=== PATIENT | male | born 1965 | race Hispanic/Latino ===

== ENCOUNTER 2016-08-09 00:08 | Inpatient (IN) | payer MEDICARE, MEDICAID, OTHER ==
[2016-08-09 00:52] VITALS: BMI 31.6
--- NOTE | 2016-08-09 00:59 | ED PDOC ---
Arrival/HPI - General Chief Complaint: Psychiatric Evaluation Time Seen by Provider: 08/09/16 00:50 Historian: Patient - History of Present Illness Narrative History of Present Illness (Text): 08/09/16 00:59 Alvarez Pillai is a 51 year old male, whose past medical history includes paranoid schizophrenia, diabetes, and liver injury, who presents to the ED complaining of auditory hallucinations tonight. Patient states he has been hearing voices and notes he has been feeling very paranoid. Patient denies any suicidal ideation, homicidal ideation, fever, chills, chest pain, shortness of breath, abdominal pain, nausea, vomiting, diarrhea, urinary symptoms, back pain, neck pain, headache, dizziness, or any other complaints. Time/Duration: Other (tonight) Symptom Onset: Gradual Symptom Course: Other Activities at Onset: Rest, Light Context: Home Past Medical History - Provider Review Nursing Documentation Reviewed: Yes - Infectious Disease Hx of Infectious Diseases: None - Cardiac Hx Cardiac Disorders: No Hx Hypertension: Yes - Pulmonary Hx Respiratory Disorders: No Hx Tuberculosis: No - Neurological HX Cerebrovascular Accident: No Hx Seizures: No - HEENT Hx HEENT Disorder: No - Renal Hx Renal Disorder: No - Endocrine/Metabolic Hx Endocrine Disorders: Yes Hx Diabetes Mellitus Type 2: Yes - Hematological/Oncological Hx Blood Disorders: No Hx Cancer: No - Integumentary Hx Dermatological Disorder: No - Musculoskeletal/Rheumatological Hx Musculoskeletal Disorders: No - Gastrointestinal Hx Gastrointestinal Disorders: Yes Hx Gastroesophageal Reflux: Yes - Genitourinary/Gynecological Hx Genitourinary Disorders: No Hx Sexually Transmitted Diseases: No - Psychiatric Hx Anxiety: Yes Hx Depression: Yes Hx Emotional Abuse: No Hx Physical Abuse: No Hx Schizophrenia: Yes Hx Sexual Abuse: No Hx Substance Use: No - Surgical History Other/Comment: liver surgery - Anesthesia Hx Anesthesia: Yes Hx Anesthesia Reactions: No Hx Malignant Hyperthermia: No Family/Social History - Physician Review Nursing Documentation Reviewed: Yes Family/Social History: No Known Family HX Smoking Status: Heavy Smoker > 10 Cigarettes Daily Hx Alcohol Use: No Hx Substance Use: No Allergies/Home Meds Allergies/Adverse Reactions: Allergies haloperidol [From Haldol] Allergy (Intermediate, Verified 08/09/16 00:56) SWELLING spasm haloperidol lactate [From Haldol] Allergy (Intermediate, Verified 08/09/16 00:56 ) SWELLING spasm risperidone [From Risperdal] Allergy (Verified 08/09/16 00:56) SWELLING Home Medications: Home Meds Medication Instructions Recorded Confirmed clonazePAM [clonAZEPAM] 1 mg PO BID 08/09/16 08/09/16 Review of Systems - Physician Review All systems were reviewed & negative as marked: Yes - Review of Systems Constitutional: Normal. absent: Fevers Eyes: Normal ENT: Normal Respiratory: Normal. absent: SOB, Cough Cardiovascular: Normal. absent: Chest Pain Gastrointestinal: Normal. absent: Abdominal Pain, Diarrhea, Nausea, Vomiting Genitourinary Male: Normal. absent: Dysuria, Frequency, Hematuria, Urinary Output Changes Musculoskeletal: Normal. absent: Back Pain, Neck Pain Skin: Normal. absent: Rash Neurological: Normal. absent: Headache, Dizziness Endocrine: Normal Hemo/Lymphatic: Normal Psychiatric: Other (+auditory hallucinations) Physical Exam Vital Signs Reviewed: Yes Vital Signs Temp Pulse Resp BP Pulse Ox 08/09/16 05:50 70 18 114/73 95 08/09/16 03:30 68 18 125/78 99 08/09/16 00:51 98.0 F 90 18 137/81 97 Temperature: Afebrile Blood Pressure: Normal Pulse: Regular Respiratory Rate: Normal Appearance: Positive for: Well-Appearing, Non-Toxic, Comfortable Pain Distress: None Mental Status: Positive for: Alert and Oriented X 3 - Systems Exam Head: Present: Atraumatic, Normocephalic Pupils: Present: PERRL Extroacular Muscles: Present: EOMI Conjunctiva: Present: Normal Mouth: Present: Moist Mucous Membranes Neck: Present: Normal Range of Motion Respiratory/Chest: Present: Clear to Auscultation, Good Air Exchange. No: Respiratory Distress, Accessory Muscle Use Cardiovascular: Present: Regular Rate and Rhythm, Normal S1, S2. No: Murmurs Abdomen: Present: Normal Bowel Sounds. No: Tenderness, Distention, Peritoneal Signs Back: Present: Normal Inspection Upper Extremity: Present: Normal Inspection. No: Cyanosis, Edema Lower Extremity: Present: Normal Inspection. No: Edema Neurological: Present: GCS=15, CN II-XII Intact, Speech Normal Skin: Present: Warm, Dry, Normal Color. No: Rashes Psychiatric: Present: Alert, Oriented x 3, Normal Insight, Normal Concentration Medical Decision Making ED Course and Treatment: 08/09/16 00:59 Impression: 50 y/o male c/o auditory hallucinations and paranoia today. Differential Diagnosis included but are not limited to: paranoid schizophrenia Plan: -- EKG -- CXR -- Labs, alcohol level -- Urinalysis, urine drug screen -- Reassess and disposition Prior Visits: Notes and results from previous visits were reviewed. On 06/25/2016, pt was seen in the ED complaining of auditory hallucinations. Pt was admitted for further psychiatric evaluation. 08/09/16 01:36 Reviewed EKG, NSR at 80 bpm. Sinus arrhythmia. Non-specific T wave changes. 08/09/16 02:26 Reviewed radiology, Chest X-ray shows no active disease. Reviewed labs, alcohol <10, negative tox screen. Pt medically cleared for psychiatric evaluation. PES paged. 08/09/16 05:36 Pt seen and evaluated by PES worker. States pt will be admitted to Behavioral [facility] under Dr. Daly's service for schizoaffectie disorder. Pt is agreeable with plan. - Lab Interpretations Lab Results: 08/09/16 01:36 08/09/16 01:36 Lab Results 08/09/16 03:20: Urine Color Yellow, Urine Appearance Clear, Urine pH 6.0, Ur Specific [place] 1.015, Urine Protein Negative, Urine Glucose (UA) Negative, Urine Ketones Negative, Urine Blood Negative, Urine Nitrate Negative, Urine Bilirubin Negative, Urine Urobilinogen 0.2, Ur Leukocyte Esterase Negative, Urine Opiates Screen Negative, Urine Methadone Screen Negative, Ur Barbiturates Screen Negative, Ur Phencyclidine Scrn Negative, Ur Amphetamines Screen Negative , U Benzodiazepines Scrn Negative, U Oth Cocaine Metabols Negative, U Cannabinoids Screen Negative 08/09/16 01:36: WBC 9.1, RBC 5.44, Hgb 15.3, Hct 44.5, MCV 81.8, MCH 28.1, MCHC 34.4, RDW 15.2 H, Plt Count 252, MPV 9.6, Gran % 62.9, Lymph % (Auto) 28.9, [place] % (Auto) 6.4 H, Eos % (Auto) 1.5, Baso % (Auto) 0.3, Gran # 5.69, Lymph # 2.6, [place] # 0.6, Eos # 0.1, Baso # 0.03, Sodium 138, Potassium 3.9, Chloride 102 , Carbon Dioxide 25, Anion Gap 15, BUN 8, Creatinine 0.8, Est GFR ( Amer ) > 60, Est GFR (Non-Af Amer) > 60, Random Glucose 91, Calcium 9.4, Total Bilirubin 0.5, AST 21, ALT 34, Alkaline Phosphatase 134 H, Total Protein 8.3, Albumin 4.6, Globulin 3.7, Albumin/Globulin Ratio 1.2, Salicylates < 1 L, Acetaminophen < 10.0 L, Alcohol, Quantitative < 10 I have reviewed the lab results: Yes - RAD Interpretation Radiology Orders: 08/09/16 00:53 CHEST PORTABLE [RAD] Stat - EKG Interpretation Interpreted by ED Physician: Yes Type: 12 lead EKG - Medication Orders Current Medication Orders: Acetaminophen (Tylenol 325mg Tab) 650 mg PO Q4 PRN PRN Reason: Pain Al Hydrox/Mg Hydrox/Simethicone (Maalox Plus 30 Ml) 30 ml PO DAILY PRN PRN Reason: Upset Stomach Amlodipine Besylate (Norvasc) 10 mg PO DAILY [facility] Atorvastatin Calcium (Lipitor) 10 mg PO DAILY [facility] Clonazepam (Klonopin) 0.5 mg PO TID [facility] PRN Reason: Protocol Last Admin: 08/09/16 18:14 Dose: 0.5 MG Behavioural Document 08/09/16 18:14 CV (Rec: 08/09/16 18:15 CV [id number]) Maintenance Maintenance Dose Yes Nonmedicinal Nonmedicinal Interventions Therapeutic Communication Famotidine (Pepcid) 20 mg PO HS [facility] Last Admin: 08/09/16 22:25 Dose: 20 MG Fluphenazine HCl (Prolixin) 5 mg PO AMHS [facility] PRN Reason: Protocol Last Admin: 08/09/16 22:24 Dose: 5 MG Behavioural Document 08/09/16 22:24 LVC (Rec: 08/09/16 22:25 [id number] Maintenance Maintenance Dose Yes Magnesium Hydroxide (Milk Of Magnesia) 30 ml PO DAILY PRN PRN Reason: Constipation Metformin HCl (Glucophage) 1,000 mg PO BID [facility] Last Admin: 08/09/16 16:16 Dose: 1,000 MG Mirtazapine (Remeron) 15 mg PO HS [facility] Last Admin: 08/09/16 22:25 Dose: 15 MG Sertraline HCl (Zoloft) 50 mg PO DAILY [facility] Last Admin: 08/09/16 11:51 Dose: 50 MG Discontinued Medications Clonazepam (Klonopin) 1 mg PO STAT [facility] PRN Reason: Protocol Stop: 08/09/16 03:04 Last Admin: 08/09/16 03:25 Dose: 1 MG Behavioural Document 08/09/16 03:25 SB (Rec: 08/09/16 03:25 SB [id number]) Maintenance Maintenance Dose No Nonmedicinal Nonmedicinal Interventions Redirect Therapeutic Communication Behavior Behavior for Medication: Anxiety Re-Assess: Reassess Psych Meds Document 08/09/16 04:25 CV (Rec: 08/09/16 11:14 CV [id number]) Reassess Psych Med Effective Ondansetron HCl (Zofran Odt) 8 mg PO STAT [facility] Stop: 08/09/16 04:18 Last Admin: 08/09/16 04:29 Dose: Not Given Non-Admin Reason: Patient Refused - Scribe Statement The provider has reviewed the documentation as recorded by the Abiola Jiang Provider Attestation: All medical record entries made by the Abiola were at my direction and personally dictated by me. I have reviewed the chart and agree that the record accurately reflects my personal performance of the history, physical exam, medical decision making, and the department course for this patient. I have also personally directed, reviewed, and agree with the discharge instructions and disposition. Disposition/Present on Arrival - Present on Arrival Any Indicators Present on Arrival: No History of DVT/PE: No History of Uncontrolled Diabetes: No Urinary Catheter: No History of Decub. Ulcer: No History Surgical Site Infection Following: None - Disposition Have Diagnosis and Disposition been Completed?: Yes Diagnosis: Schizoaffective disorder Disposition: HOSPITALIZED Disposition Time: 06:00 Condition: GOOD
[2016-08-09 01:59] LABS: ADD MANUAL DIFF? NO
[2016-08-09 02:09] LABS: ALB/GLOB RATIO 1.2 (1.1-1.8); ALKALINE PHOSPHATASE 134 U/L (38-133); ALT/SGPT 34 U/L (7-56); AST/SGOT 21 U/L (15-59); BILIRUBIN,TOTAL 0.5 mg/dL (0.2-1.3); BLOOD UREA NITROGEN 8 mg/dL (7-21); CALCIUM 9.4 mg/dL (8.4-10.5); CARBON DIOXIDE 25 mmol/L (21-33); CHLORIDE 102 mmol/L (95-110); GFR AFRICAN-AMERICAN > 60; GLUCOSE,RANDOM 91 mg/dL (70-110); POTASSIUM 3.9 mmol/L (3.6-5.0); SODIUM 138 mmol/L (132-148); TOTAL PROTEIN 8.3 g/dL (5.8-8.3)
[2016-08-09 02:13] LABS: BASO # 0.03 K/mm3 (0.0-2.0); BASO % 0.3 % (0.0-3.0); EOS # 0.1 (0.0-0.7); EOS % 1.5 % (1.5-5.0); GRAN # 5.69 (1.4-6.5); GRAN % 62.9 % (50.0-68.0); HEMATOCRIT 44.5 % (42.0-52.0); LYMPH # 2.6 (1.2-3.4); LYMPH % 28.9 % (22.0-35.0); MEAN CELL VOLUME 81.8 fL (80.0-105.0); MEAN CORPUSCULAR HEMOGLOBIN 28.1 pg (25.0-35.0); MEAN CORPUSCULAR HGB CONC 34.4 g/dl (31.0-37.0); MEAN PLATELET VOLUME 9.6 fl (7.0-11.0); MONO # 0.6 (0.1-0.6); MONO % 6.4 % (1.0-6.0); PLATELET COUNT 252 10^3/uL (120.0-450.0); RED CELL DISTRIBUTION WIDTH 15.2 % (11.5-14.5); WHITE BLOOD COUNT 9.1 10^3/ul (4.5-11.0)
[2016-08-09 03:34] LABS: URINE BILIRUBIN NEGATIVE (NEGATIVE); URINE BLOOD NEGATIVE (NEGATIVE); URINE GLUCOSE (UA) NEGATIVE (NEGATIVE); URINE KETONE NEGATIVE (NEGATIVE); URINE LEUKOCYTE ESTERASE NEGATIVE Leu/uL (NEGATIVE); URINE PROTEIN NEGATIVE mg/dL (<30 mg/dL); URINE UROBILINOGEN 0.2 E.U./dL (<1 E.U./dL)
[2016-08-09 03:39] LABS: URINE APPEARANCE CLEAR (CLEAR); URINE COLOR YELLOW (YELLOW)
[2016-08-09] MEDS ORDERED: Alum-Mag Hydrox-Simethicone Susp (30 mL) PO PRN (08:30)
[2016-08-09] MEDS ORDERED: Magnesium Hydroxide Susp 30 ml UD PO PRN (08:30)
--- NOTE | 2016-08-09 09:11 | RAD ---
HISTORY: pes COMPARISON: 06/25/2016 FINDINGS: LUNGS: No active pulmonary disease. PLEURA: No significant pleural effusion identified, no pneumothorax apparent. CARDIOVASCULAR: Normal. OSSEOUS STRUCTURES: No significant abnormalities. VISUALIZED UPPER ABDOMEN: Normal. OTHER FINDINGS: None. IMPRESSION: No active disease.
--- NOTE | 2016-08-09 09:14 | CON ---
DATE: 08/09/2016 I know the patient from the office and multiple admissions to the hospital. He presents with a paran oid schizophrenia kind of feeling, auditory hallucinations, hearing voices and does not like it. Thi s is new and it is getting worse. PAST MEDICAL HISTORY: Includes paranoid schizophrenia, questionable history of diabetes, a liver inj ury. He is not homicidal, not suicidal; just paranoid and hearing voices at this time. There is a q uestionable history of hypertension, diabetes, reflux, anxiety, depression. PAST SURGICAL HISTORY: He had liver surgery in the past. FAMILY HISTORY: There is no known history in the family. SOCIAL HISTORY: He still smokes. No alcohol, no drugs. ALLERGIES: HALDOL AND RISPERDAL. MEDICATIONS: He is supposedly taking clonazepam. No medicines for diabetes, hypertension or GERD at this time. REVIEW OF SYSTEMS: No acute vision changes or hearing changes. No sore throat. No chest pain, no p alpitations. No shortness of breath, coughing or wheezing. No abdominal pain. No nausea, vomiting. Extremities are okay. He is walking okay. No back pains or skin issues. Just hearing voices. PHYSICAL EXAMINATION: VITAL SIGNS: He has a 98 temp, 68 pulse, 18 respiratory rate, 125/78 blood pressure, 99% O2 sat on r oom air. HEENT: Head is atraumatic, normocephalic. Extraocular muscles are intact. Pupils equal, reactive t o light and accommodation. Throat moist, no erythema. Alert and oriented x 3. Mouth is moist. NECK: Supple. HEART: Regular rate. LUNGS: Decreased breath sounds but clear to auscultation. ABDOMEN: Soft, nontender, positive bowel sounds. EXTREMITIES: No edema. NEUROLOGIC: GCS is 15. Cranial nerves II-XII grossly intact. Normal speech. He can stick out his tongue midline. He can close his eyes tight. He can raise his arms over his head. He is alert and oriented x 3. LYMPHATICS: Thyroid midline. No palpable appreciative lymphadenopathy. LABORATORY: He had some tests in the ER. He had a urine which was negative, toxicology which was ne gative. Sodium 138, potassium 3.9, BUN 8, creatinine 0.8, GFR is greater than 60, sugar is 91, calci um is 9.4. Total bili is 0.5, AST 21, ALT 34, alkaline phosphatase 134, total protein is 8.3, albumi n is 4.6. A 9.1 white count, 15.3 hemoglobin, 44.5 hematocrit, and now 252 platelets. Chest x-ray and EKG are pending. He is currently on Maalox, milk of magnesia and Tylenol. I will put him on his Lipitor for the etienne sterol, Pepcid for his stomach, Glucophage, and amlodipine for his blood pressure. Will keep an eye on everything. Will have psychiatry handle his psychiatric meds. I am hoping he does well here in [facility] psychiatric unit and I will follow along. Will check his labs tomorrow too. The patient is here for paranoid schizophrenia, diabetes; hallucinations, auditory; hypertension, gas troesophageal reflux disease, diabetes. Jose Johnson DO cc: [id number] TT: 08/09/2016 09:13:57 Confirmation # [id number] Dictation # [id number] indigo
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
--- NOTE | 2016-08-09 19:02 | CARD ---
APPROVED REPORT EKG Measurement Heart [id number] <Conclusion> Normal sinus rhythm with sinus arrhythmia Nonspecific T wave abnormality Abnormal ECG
[2016-08-10 08:13] LABS: HEMATOCRIT 46.2 % (42.0-52.0); MEAN CELL VOLUME 81.9 fL (80.0-105.0); MEAN CORPUSCULAR HEMOGLOBIN 27.7 pg (25.0-35.0); MEAN CORPUSCULAR HGB CONC 33.8 g/dl (31.0-37.0); MEAN PLATELET VOLUME 9.8 fl (7.0-11.0); RED CELL DISTRIBUTION WIDTH 15.5 % (11.5-14.5); WHITE BLOOD COUNT 10.9 10^3/ul (4.5-11.0)
[2016-08-10 08:25] LABS: ALB/GLOB RATIO 1.1 (1.1-1.8); ALKALINE PHOSPHATASE 119 U/L (38-133); ALT/SGPT 36 U/L (7-56); AST/SGOT 25 U/L (15-59); BILIRUBIN,TOTAL 0.6 mg/dL (0.2-1.3); BLOOD UREA NITROGEN 17 mg/dL (7-21); CARBON DIOXIDE 25 mmol/L (21-33); CHLORIDE 105 mmol/L (98-107); CHOLESTEROL 116 mg/dL (130-200); GFR AFRICAN-AMERICAN > 60; GLUCOSE,RANDOM 76 mg/dL (70-110); POTASSIUM 4.1 mmol/L (3.6-5.0); SODIUM 139 mmol/L (132-148); TOTAL PROTEIN 7.6 g/dL (5.8-8.3)
[2016-08-10 08:48] LABS: FREE T4 0.88 ng/dL (0.78-2.19)
[2016-08-10 09:02] LABS: THYROID STIMULATING HORMONE 0.58 mIU/mL (0.46-4.68)
--- NOTE | 2016-08-10 09:47 | PN ---
DATE: 08/10/2016 He slept fairly well. He is hungry for breakfast, in no acute distress. He understands why he is there. He is on the medication. No acute changes. MEDICATIONS: He is on Glucophage, Klonopin, Lipitor, Maalox, milk of magnesia, Norvasc, Pepcid, Prolixin, Remeron, Tylenol, and Zoloft. PHYSICAL EXAMINATION: VITAL SIGNS: He has a 98 temp, 90 pulse, 137/81 blood pressure, 18 respiratory rate, 97% O2 sat on room air. HEAD: Atraumatic, normocephalic. Throat is moist. NECK: Supple. HEART: Regular rate. LUNGS: Clear to auscultation. ABDOMEN: Soft, obese, nontender. EXTREMITIES: No edema. LABORATORY DATA: He has a 10.9 white count, 15.6 hemoglobin, 46.2 hematocrit with 254 platelets. Sodium 139, potassium 4.1. BUN is 17, creatinine 0.8. GFR is greater than 60. Sugar was 76. Calcium is 9. Total bili is 0.6. AST is 25. ALT is 36. Alk phos is 119. Total protein is 7.6. Albumin is 4, globulin 3.6. Triglycerides are 109. Cholesterol is 116. He is here for paranoid schizophrenia, diabetes, hallucinations - auditory, hypertension, and GERD. He is being seen by psychiatrist, and they are adjusting his medications, watching the response. Overall, he has got a little bit more to go. We will continue with treatment changes, as per psychiatry. Jose Johnson DO cc: [id number] TT: 08/10/2016 09:46:05 Confirmation # [id number] Dictation # [id number] [id number] MTDD
--- NOTE | 2016-08-10 16:09 | PCM.PYCHPN ---
Psychiatric Progress Note - Psychiatric Progress Note Patient seen today, length of contact: 30 minutes Patient Chief Complaint: "I still have that projective thoughts Problems Identified/Issues Discussed: Suicide/ homicide prevention, past psychiatric h/o, current psychiatric symptoms , medical problems, risk/benefits and alternatives of medications, medications compliance, coping strategies, substance abuse h/o, relapse prevention, importance of follow up with psychiatrist and therapist, discharge plan. Medical Problems: HTN, dyslipidemia, DM. transaminitis tachycardia fatty liver/cholelithiasis. Diagnostic Results: 08/10/16 07:45 08/10/16 07:45 Lab Results 08/10/16 11:56: POC Glucose (mg/dL) 72 08/10/16 07:45: WBC 10.9, RBC 5.64, Hgb 15.6, Hct 46.2, MCV 81.9, MCH 27.7, MCHC 33.8, RDW 15.5 H, Plt Count 254, MPV 9.8, Sodium 139, Potassium 4.1, Chloride 105, Carbon Dioxide 25, Anion Gap 13, BUN 17, Creatinine 0.8, Est GFR ( Amer) > 60, Est GFR (Non-Af Amer) > 60, Random Glucose 76, Calcium 9.0, Total Bilirubin 0.6, AST 25, ALT 36, Alkaline Phosphatase 119, Total Protein 7.6 , Albumin 4.0, Globulin 3.6, Albumin/Globulin Ratio 1.1, Triglycerides 109, Cholesterol 116 L, LDL Cholesterol Direct 60, HDL Cholesterol 29, Free T4 0.88, TSH 3rd Generation 0.58 08/10/16 07:41: POC Glucose (mg/dL) 79 08/09/16 21:58: POC Glucose (mg/dL) 103 08/09/16 16:35: POC Glucose (mg/dL) 107 08/09/16 12:00: POC Glucose (mg/dL) 80 08/09/16 03:20: Urine Color Yellow, Urine Appearance Clear, Urine pH 6.0, Ur Specific [place] 1.015, Urine Protein Negative, Urine Glucose (UA) Negative, Urine Ketones Negative, Urine Blood Negative, Urine Nitrate Negative, Urine Bilirubin Negative, Urine Urobilinogen 0.2, Ur Leukocyte Esterase Negative, Urine Opiates Screen Negative, Urine Methadone Screen Negative, Ur Barbiturates Screen Negative, Ur Phencyclidine Scrn Negative, Ur Amphetamines Screen Negative , U Benzodiazepines Scrn Negative, U Oth Cocaine Metabols Negative, U Cannabinoids Screen Negative 08/09/16 01:36: WBC 9.1, RBC 5.44, Hgb 15.3, Hct 44.5, MCV 81.8, MCH 28.1, MCHC 34.4, RDW 15.2 H, Plt Count 252, MPV 9.6, Gran % 62.9, Lymph % (Auto) 28.9, [place] % (Auto) 6.4 H, Eos % (Auto) 1.5, Baso % (Auto) 0.3, Gran # 5.69, Lymph # 2.6, [place] # 0.6, Eos # 0.1, Baso # 0.03, Sodium 138, Potassium 3.9, Chloride 102 , Carbon Dioxide 25, Anion Gap 15, BUN 8, Creatinine 0.8, Est GFR ( Amer ) > 60, Est GFR (Non-Af Amer) > 60, Random Glucose 91, Calcium 9.4, Total Bilirubin 0.5, AST 21, ALT 34, Alkaline Phosphatase 134 H, Total Protein 8.3, Albumin 4.6, Globulin 3.7, Albumin/Globulin Ratio 1.2, Salicylates < 1 L, Acetaminophen < 10.0 L, Alcohol, Quantitative < 10 Vital Signs Temp Pulse Resp BP Pulse Ox 08/10/16 09:59 98.4 F 65 20 110/60 08/09/16 08:05 20 08/09/16 05:50 70 18 114/73 95 08/09/16 03:30 68 18 125/78 99 08/09/16 00:51 98.0 F 90 18 137/81 97 DSM 5 Symptoms Update: Shortly pt is 51yo male with long h/o schizoaffective disorder, multiple psychiatric admissions in the past including [facility] and this facility more than five times for the past year, h/o being on clozaril, currently under [facility] team service, was admitted to the psychiatric inpatient unit for evaluation and stabilization of worsening of his psychosis, depression , worsening of OCD? inability to function and possible thoughts of harming self. Pt was seen at am, in his room, pt presented with fair personal hygiene, fare ADLs, guarded, seems to be internally preoccupied, responding to internal stimuli, intense eye contact, irritable, flat and angry affect. patient reported that he still has that "projective thoughts" patient reported that he feels paranoid reported that she feels sleepy on Prolixin today. as per nursing staff reported patient is self isolative, appears to be angry and irritable, not interested to go to groups, seems to be internally preoccupied. Patient reported to tolerate medications well, no side effects observed and reported, aims 0, no EPS. DSM 5 Diagnosis: schizoaffective disorder r/o OCD pt was also taking testosteron supplement which could give psychotic symptoms Medication Change: Yes Medical Record Reviewed: Yes (prolixin increased) Consults ordered or reviewed: medical consult appreciated Mental Status Examination - Cognitive Function Orientation: Person, Place, Situation, Time Memory: Intact Attention: Poor Concentration: Poor Association: Loose Fund of Knowledge: Poor - Mood Mood: Depressed, Anxious - Affect Affect: Flat - Formal Thought Process Formal Thought Process: Hallucinations, Delusions, Paranoia, Thought Broadcasting - Suicidal Ideation Suicidal Ideation: No - Homicidal Ideation Homicidal Ideation: No Goal/Treatment Plan - Goal/Treatment Plan Need for Continued Stay: Remain at risks for inpatient hospitalization, Severe depression anxiety, Discharge may exacerbated symptoms, Severe functional impairment Progress Toward Problem(s) and Goals/Treatment Plan: Milieu/structure/supportive therapy considering the fact pt was on abilify mantenna and still had psychotic symptoms , will try prolixin, risk, benefits and alternatives discussed, with the plan to give injectable form of prolixin will d/c rusty will continue Prozac 40mg po daily for mdd and anxiety, ocd (pt was given zoloft by mistake) will continue on Remeron 30 mg PO HS will continue on klonopin 0.5mg tid for anxiety will continue all of his meds for medical issues medical evaluation will be called will call for collaterals from [facility] team Estimated Date of D/C: 08/18/16 (we'll monitor closely)
--- NOTE | 2016-08-11 09:05 | PN ---
DATE: 08/11/2016 I saw the patient the psychiatric unit this morning. He slept fairly well. He is comfortable. He i s on Glucophage, Klonopin, Lipitor, Maalox, milk of magnesia, Norvasc, Pepcid, Prolixin, Prozac, [place] and Tylenol. PHYSICAL EXAMINATION: VITAL SIGNS: 97.6 temp, 65 pulse, 91/55 blood pressure, 20 respiratory rate. HEENT: Head is atraumatic, normocephalic. HEART: Regular rate. LUNGS: Clear to auscultation. ABDOMEN: Soft. EXTREMITIES: No edema. He is actually telling me he is feeling a little bit better and is improving . LABORATORY DATA: He has a 10.9 white count, 15.6 hemoglobin, 254 platelets. Sodium 139, potassium 4 .1, BUN 17, creatinine 0.8. AST is 25, ALT 36, alkaline phosphatase 119. I do think he is starting to slowly improve as per psychiatry and adjustment of medications. Will co luci to follow. I am hoping he continues to improve. He has paranoid schizophrenia, diabetes, auditory hallucinations, hypertension and gastroesophageal r eflux disease. Will keep an eye on him closely. Jose Johnson DO cc: [id number] TT: 08/11/2016 09:05:32 Confirmation # [id number] Dictation # [id number] [place]
--- NOTE | 2016-08-11 17:53 | PCM.PYCHPN ---
Psychiatric Progress Note - Psychiatric Progress Note Patient seen today, length of contact: 30 minutes Patient Chief Complaint: "I still have that projective thoughts" Problems Identified/Issues Discussed: Suicide/ homicide prevention, past psychiatric h/o, current psychiatric symptoms , medical problems, risk/benefits and alternatives of medications, medications compliance, coping strategies, substance abuse h/o, relapse prevention, importance of follow up with psychiatrist and therapist, discharge plan. Medical Problems: HTN, dyslipidemia, DM. transaminitis tachycardia fatty liver/cholelithiasis. Diagnostic Results: 08/10/16 07:45 08/10/16 07:45 Lab Results 08/10/16 11:56: POC Glucose (mg/dL) 72 08/10/16 07:45: WBC 10.9, RBC 5.64, Hgb 15.6, Hct 46.2, MCV 81.9, MCH 27.7, MCHC 33.8, RDW 15.5 H, Plt Count 254, MPV 9.8, Sodium 139, Potassium 4.1, Chloride 105, Carbon Dioxide 25, Anion Gap 13, BUN 17, Creatinine 0.8, Est GFR ( Amer) > 60, Est GFR (Non-Af Amer) > 60, Random Glucose 76, Calcium 9.0, Total Bilirubin 0.6, AST 25, ALT 36, Alkaline Phosphatase 119, Total Protein 7.6 , Albumin 4.0, Globulin 3.6, Albumin/Globulin Ratio 1.1, Triglycerides 109, Cholesterol 116 L, LDL Cholesterol Direct 60, HDL Cholesterol 29, Free T4 0.88, TSH 3rd Generation 0.58 08/10/16 07:41: POC Glucose (mg/dL) 79 08/09/16 21:58: POC Glucose (mg/dL) 103 08/09/16 16:35: POC Glucose (mg/dL) 107 08/09/16 12:00: POC Glucose (mg/dL) 80 08/09/16 03:20: Urine Color Yellow, Urine Appearance Clear, Urine pH 6.0, Ur Specific [place] 1.015, Urine Protein Negative, Urine Glucose (UA) Negative, Urine Ketones Negative, Urine Blood Negative, Urine Nitrate Negative, Urine Bilirubin Negative, Urine Urobilinogen 0.2, Ur Leukocyte Esterase Negative, Urine Opiates Screen Negative, Urine Methadone Screen Negative, Ur Barbiturates Screen Negative, Ur Phencyclidine Scrn Negative, Ur Amphetamines Screen Negative , U Benzodiazepines Scrn Negative, U Oth Cocaine Metabols Negative, U Cannabinoids Screen Negative 08/09/16 01:36: WBC 9.1, RBC 5.44, Hgb 15.3, Hct 44.5, MCV 81.8, MCH 28.1, MCHC 34.4, RDW 15.2 H, Plt Count 252, MPV 9.6, Gran % 62.9, Lymph % (Auto) 28.9, [place] % (Auto) 6.4 H, Eos % (Auto) 1.5, Baso % (Auto) 0.3, Gran # 5.69, Lymph # 2.6, [place] # 0.6, Eos # 0.1, Baso # 0.03, Sodium 138, Potassium 3.9, Chloride 102 , Carbon Dioxide 25, Anion Gap 15, BUN 8, Creatinine 0.8, Est GFR ( Amer ) > 60, Est GFR (Non-Af Amer) > 60, Random Glucose 91, Calcium 9.4, Total Bilirubin 0.5, AST 21, ALT 34, Alkaline Phosphatase 134 H, Total Protein 8.3, Albumin 4.6, Globulin 3.7, Albumin/Globulin Ratio 1.2, Salicylates < 1 L, Acetaminophen < 10.0 L, Alcohol, Quantitative < 10 Vital Signs Temp Pulse Resp BP Pulse Ox 08/10/16 09:59 98.4 F 65 20 110/60 08/09/16 08:05 20 08/09/16 05:50 70 18 114/73 95 08/09/16 03:30 68 18 125/78 99 08/09/16 00:51 98.0 F 90 18 137/81 97 DSM 5 Symptoms Update: Shortly pt is 51yo male with long h/o schizoaffective disorder, multiple psychiatric admissions in the past including [facility] and this facility more than five times for the past year, h/o being on clozaril, currently under [facility] team service, was admitted to the psychiatric inpatient unit for evaluation and stabilization of worsening of his psychosis, depression , worsening of OCD? inability to function and possible thoughts of harming self. Pt was seen at am, in his room, pt presented with fair personal hygiene, fare ADLs, guarded, seems to have some improvement, less psychotic, pt was more engaged into conversation, affect is more reactive. patient reported that he still has that "projective thoughts" patient reported that he feels paranoid. as per nursing staff reported patient is self isolative, appears to be less angry. Patient reported to tolerate medications well, no side effects observed and reported, aims 0, no EPS. DSM 5 Diagnosis: schizoaffective disorder r/o OCD pt was also taking testosteron supplement which could give psychotic symptoms Medication Change: Yes Medical Record Reviewed: Yes (prolixin increased) Consults ordered or reviewed: medical consult appreciated Mental Status Examination - Cognitive Function Orientation: Person, Place, Situation, Time Memory: Intact Attention: Poor Concentration: Poor Association: Loose Fund of Knowledge: Poor - Mood Mood: Depressed, Anxious - Affect Affect: Flat - Formal Thought Process Formal Thought Process: Hallucinations, Delusions, Paranoia, Thought Broadcasting - Suicidal Ideation Suicidal Ideation: No - Homicidal Ideation Homicidal Ideation: No Goal/Treatment Plan - Goal/Treatment Plan Need for Continued Stay: Remain at risks for inpatient hospitalization, Severe depression anxiety, Discharge may exacerbated symptoms, Severe functional impairment Progress Toward Problem(s) and Goals/Treatment Plan: Milieu/structure/supportive therapy considering the fact pt was on abilify mantenna and still had psychotic symptoms , will try prolixin, risk, benefits and alternatives discussed, with the plan to give injectable form of prolixin will d/c rusty will continue Prozac 40mg po daily for mdd and anxiety, ocd (pt was given zoloft by mistake) will continue on Remeron 30 mg PO HS will continue on klonopin 0.5mg tid for anxiety will continue all of his meds for medical issues medical evaluation will be called will call for collaterals from [facility] team SW evaluation Estimated Date of D/C: 08/18/16 (we'll monitor closely)
--- NOTE | 2016-08-12 09:09 | PN ---
DATE: 08/12/2016 I saw the patient in his room on the psychiatric floor. He is comfortable. He slept well. He is ea ting better. He tells me he is feeling better with the medications. MEDICATIONS: He is on Glucophage, Klonopin, Lipitor, Maalox, milk of magnesia, Norvasc, Pepcid, Prol ixin, Prozac, Remeron and Tylenol. PHYSICAL EXAMINATION: VITAL SIGNS: 97.8 temp, 75 pulse, 108/73 blood pressure, 20 respiratory rate. HEENT: Head is atraumatic, normocephalic. HEART: Regular rate. LUNGS: Clear to auscultation. ABDOMEN: Soft. EXTREMITIES: No edema. LABORATORY DATA: He has a 10.9 white count, 254 platelets and a 15.6 hemoglobin. Last blood sugar w as 62. Overall, I think he is starting to improve. He is here for paranoid schizophrenia, diabetes, auditory hallucinations, hypertension and gastroesop hageal reflux disease. As per psychiatry, continue to be aggressive in the treatment. Jose Johnson DO cc: [id number] TT: 08/12/2016 09:09:29 Confirmation # [id number] Dictation # [id number] mn
--- NOTE | 2016-08-12 10:22 | PCM.PYCHPN ---
Psychiatric Progress Note - Psychiatric Progress Note Patient seen today, length of contact: 30 minutes Patient Chief Complaint: "I feel little better" Problems Identified/Issues Discussed: Suicide/ homicide prevention, past psychiatric h/o, current psychiatric symptoms , medical problems, risk/benefits and alternatives of medications, medications compliance, coping strategies, substance abuse h/o, relapse prevention, importance of follow up with psychiatrist and therapist, discharge plan. Medical Problems: HTN, dyslipidemia, DM. transaminitis tachycardia fatty liver/cholelithiasis. Diagnostic Results: 08/10/16 07:45 08/10/16 07:45 Lab Results 08/10/16 11:56: POC Glucose (mg/dL) 72 08/10/16 07:45: WBC 10.9, RBC 5.64, Hgb 15.6, Hct 46.2, MCV 81.9, MCH 27.7, MCHC 33.8, RDW 15.5 H, Plt Count 254, MPV 9.8, Sodium 139, Potassium 4.1, Chloride 105, Carbon Dioxide 25, Anion Gap 13, BUN 17, Creatinine 0.8, Est GFR ( Amer) > 60, Est GFR (Non-Af Amer) > 60, Random Glucose 76, Calcium 9.0, Total Bilirubin 0.6, AST 25, ALT 36, Alkaline Phosphatase 119, Total Protein 7.6 , Albumin 4.0, Globulin 3.6, Albumin/Globulin Ratio 1.1, Triglycerides 109, Cholesterol 116 L, LDL Cholesterol Direct 60, HDL Cholesterol 29, Free T4 0.88, TSH 3rd Generation 0.58 08/10/16 07:41: POC Glucose (mg/dL) 79 08/09/16 21:58: POC Glucose (mg/dL) 103 08/09/16 16:35: POC Glucose (mg/dL) 107 08/09/16 12:00: POC Glucose (mg/dL) 80 08/09/16 03:20: Urine Color Yellow, Urine Appearance Clear, Urine pH 6.0, Ur Specific [place] 1.015, Urine Protein Negative, Urine Glucose (UA) Negative, Urine Ketones Negative, Urine Blood Negative, Urine Nitrate Negative, Urine Bilirubin Negative, Urine Urobilinogen 0.2, Ur Leukocyte Esterase Negative, Urine Opiates Screen Negative, Urine Methadone Screen Negative, Ur Barbiturates Screen Negative, Ur Phencyclidine Scrn Negative, Ur Amphetamines Screen Negative , U Benzodiazepines Scrn Negative, U Oth Cocaine Metabols Negative, U Cannabinoids Screen Negative 08/09/16 01:36: WBC 9.1, RBC 5.44, Hgb 15.3, Hct 44.5, MCV 81.8, MCH 28.1, MCHC 34.4, RDW 15.2 H, Plt Count 252, MPV 9.6, Gran % 62.9, Lymph % (Auto) 28.9, [place] % (Auto) 6.4 H, Eos % (Auto) 1.5, Baso % (Auto) 0.3, Gran # 5.69, Lymph # 2.6, [place] # 0.6, Eos # 0.1, Baso # 0.03, Sodium 138, Potassium 3.9, Chloride 102 , Carbon Dioxide 25, Anion Gap 15, BUN 8, Creatinine 0.8, Est GFR ( Amer ) > 60, Est GFR (Non-Af Amer) > 60, Random Glucose 91, Calcium 9.4, Total Bilirubin 0.5, AST 21, ALT 34, Alkaline Phosphatase 134 H, Total Protein 8.3, Albumin 4.6, Globulin 3.7, Albumin/Globulin Ratio 1.2, Salicylates < 1 L, Acetaminophen < 10.0 L, Alcohol, Quantitative < 10 Vital Signs Temp Pulse Resp BP Pulse Ox 08/10/16 09:59 98.4 F 65 20 110/60 08/09/16 08:05 20 08/09/16 05:50 70 18 114/73 95 08/09/16 03:30 68 18 125/78 99 08/09/16 00:51 98.0 F 90 18 137/81 97 Temp Pulse Resp BP Pulse Ox 97.8 F 75 20 108/73 95 08/12/16 07:50 08/12/16 09:52 08/12/16 07:50 08/12/16 09:52 08/09/16 05:50 DSM 5 Symptoms Update: Shortly pt is 51yo male with long h/o schizoaffective disorder, multiple psychiatric admissions in the past including [facility] and this facility more than five times for the past year, h/o being on clozaril, currently under [facility] team service, was admitted to the psychiatric inpatient unit for evaluation and stabilization of worsening of his psychosis, depression , worsening of OCD? inability to function and possible thoughts of harming self. Pt was seen next to the nursing station, pt presented with fair personal hygiene , fare ADLs, guarded, seems to have some improvement, less psychotic, pt was more engaged into conversation, affect is more reactive. patient reported that medications are "working". as per nursing staff reported patient is more visible in the unit, started to go to groups. Patient reported to tolerate medications well, no side effects observed and reported, aims 0, no EPS. DSM 5 Diagnosis: schizoaffective disorder r/o OCD pt was also taking testosteron supplement which could give psychotic symptoms Medication Change: Yes (prolixin increased yesterday) Medical Record Reviewed: Yes Consults ordered or reviewed: medical consult appreciated Mental Status Examination - Cognitive Function Orientation: Person, Place, Situation, Time Memory: Intact Attention: Poor (some improvement) Concentration: Poor (some improvement) Association: WNL Fund of Knowledge: Poor - Mood Mood: Depressed, Anxious - Affect Affect: Flat - Formal Thought Process Formal Thought Process: Hallucinations (some improvement), Delusions (some improvement), Paranoia (some imprvement), Thought Broadcasting - Suicidal Ideation Suicidal Ideation: No - Homicidal Ideation Homicidal Ideation: No Goal/Treatment Plan - Goal/Treatment Plan Need for Continued Stay: Remain at risks for inpatient hospitalization, Severe depression anxiety, Discharge may exacerbated symptoms, Severe functional impairment Progress Toward Problem(s) and Goals/Treatment Plan: Milieu/structure/supportive therapy considering the fact pt was on abilify mantenna and still had psychotic symptoms , will try prolixin, risk, benefits and alternatives discussed, with the plan to give injectable form of prolixin prolixin 10mg amhs for psychosis will d/c abilify will continue Prozac 40mg po daily for mdd and anxiety, ocd (pt was given zoloft by mistake) will continue on Remeron 15 mg PO HS (correction to my previous note, pt was on remeron 15mg hs) will continue on klonopin 0.5mg tid for anxiety will continue all of his meds for medical issues medical evaluation will be called will call for collaterals from [facility] team SW evaluation Estimated Date of D/C: 08/18/16 (we'll monitor closely)
--- NOTE | 2016-08-13 09:47 | PN ---
DATE: 08/13/2016 I saw him on the psychiatric unit in his room. He is resting comfortable. Slept fairly well. No ac [place] distress. No chest pain or shortness breath, abdominal pain. He is eating. He is trying to get better. He tells me he is feeling a little bit better. He is on Glucophage, Klonopin, Lipitor, Maalox, milk of magnesia, Norvasc, Pepcid, Prolixin, Prozac, Remeron, and Tylenol. VITAL SIGNS: 97.3 temp, 60 pulse, 78/45 blood pressure, 125/79 blood pressure, 20 respiratory. HEAD: Atraumatic, normocephalic. THROAT: Moist. NECK: Supple. HEART: Regular rate. LUNGS: Clear to auscultation. ABDOMEN: Soft, mildly obese. EXTREMITIES: No edema. LABORATORY: It was on the 08/10. He did very well with the CBC. His last blood sugar was 84. He is being seen by psychiatry. They are adjusting his medications. He is doing, I think, fairly we ll. He is here for paranoid schizophrenia, diabetes, auditory hallucinations, which I think have les sened, hypertension, and GERD. I will continue to follow along medically. Thank you for allowing me to participate in his care. Jose Johnson DO cc: [id number] TT: 08/13/2016 09:47:07 Confirmation # [id number] Dictation # [id number]
--- NOTE | 2016-08-13 18:04 | PCM.PYCHPN ---
Psychiatric Progress Note - Psychiatric Progress Note Patient seen today, length of contact: 30 minutes Patient Chief Complaint: "I feel little better, voices are better, I am less paranoid" Problems Identified/Issues Discussed: Suicide/ homicide prevention, past psychiatric h/o, current psychiatric symptoms , medical problems, risk/benefits and alternatives of medications, medications compliance, coping strategies, substance abuse h/o, relapse prevention, importance of follow up with psychiatrist and therapist, discharge plan. Medical Problems: HTN, dyslipidemia, DM. transaminitis tachycardia fatty liver/cholelithiasis. Diagnostic Results: 08/10/16 07:45 08/10/16 07:45 Lab Results 08/10/16 11:56: POC Glucose (mg/dL) 72 08/10/16 07:45: WBC 10.9, RBC 5.64, Hgb 15.6, Hct 46.2, MCV 81.9, MCH 27.7, MCHC 33.8, RDW 15.5 H, Plt Count 254, MPV 9.8, Sodium 139, Potassium 4.1, Chloride 105, Carbon Dioxide 25, Anion Gap 13, BUN 17, Creatinine 0.8, Est GFR ( Amer) > 60, Est GFR (Non-Af Amer) > 60, Random Glucose 76, Calcium 9.0, Total Bilirubin 0.6, AST 25, ALT 36, Alkaline Phosphatase 119, Total Protein 7.6 , Albumin 4.0, Globulin 3.6, Albumin/Globulin Ratio 1.1, Triglycerides 109, Cholesterol 116 L, LDL Cholesterol Direct 60, HDL Cholesterol 29, Free T4 0.88, TSH 3rd Generation 0.58 08/10/16 07:41: POC Glucose (mg/dL) 79 08/09/16 21:58: POC Glucose (mg/dL) 103 08/09/16 16:35: POC Glucose (mg/dL) 107 08/09/16 12:00: POC Glucose (mg/dL) 80 08/09/16 03:20: Urine Color Yellow, Urine Appearance Clear, Urine pH 6.0, Ur Specific [place] 1.015, Urine Protein Negative, Urine Glucose (UA) Negative, Urine Ketones Negative, Urine Blood Negative, Urine Nitrate Negative, Urine Bilirubin Negative, Urine Urobilinogen 0.2, Ur Leukocyte Esterase Negative, Urine Opiates Screen Negative, Urine Methadone Screen Negative, Ur Barbiturates Screen Negative, Ur Phencyclidine Scrn Negative, Ur Amphetamines Screen Negative , U Benzodiazepines Scrn Negative, U Oth Cocaine Metabols Negative, U Cannabinoids Screen Negative 08/09/16 01:36: WBC 9.1, RBC 5.44, Hgb 15.3, Hct 44.5, MCV 81.8, MCH 28.1, MCHC 34.4, RDW 15.2 H, Plt Count 252, MPV 9.6, Gran % 62.9, Lymph % (Auto) 28.9, [place] % (Auto) 6.4 H, Eos % (Auto) 1.5, Baso % (Auto) 0.3, Gran # 5.69, Lymph # 2.6, [place] # 0.6, Eos # 0.1, Baso # 0.03, Sodium 138, Potassium 3.9, Chloride 102 , Carbon Dioxide 25, Anion Gap 15, BUN 8, Creatinine 0.8, Est GFR ( Amer ) > 60, Est GFR (Non-Af Amer) > 60, Random Glucose 91, Calcium 9.4, Total Bilirubin 0.5, AST 21, ALT 34, Alkaline Phosphatase 134 H, Total Protein 8.3, Albumin 4.6, Globulin 3.7, Albumin/Globulin Ratio 1.2, Salicylates < 1 L, Acetaminophen < 10.0 L, Alcohol, Quantitative < 10 Vital Signs Temp Pulse Resp BP Pulse Ox 08/10/16 09:59 98.4 F 65 20 110/60 08/09/16 08:05 20 08/09/16 05:50 70 18 114/73 95 08/09/16 03:30 68 18 125/78 99 08/09/16 00:51 98.0 F 90 18 137/81 97 Temp Pulse Resp BP Pulse Ox 97.8 F 75 20 108/73 95 08/12/16 07:50 08/12/16 09:52 08/12/16 07:50 08/12/16 09:52 08/09/16 05:50 Temp Pulse Resp BP Pulse Ox 97.3 F L 87 20 122/75 95 08/13/16 07:18 08/13/16 16:29 08/13/16 07:18 08/13/16 16:29 08/09/16 05:50 DSM 5 Symptoms Update: Shortly pt is 51yo male with long h/o schizoaffective disorder, multiple psychiatric admissions in the past including [facility] and this facility more than five times for the past year, h/o being on clozaril, currently under [facility] team service, was admitted to the psychiatric inpatient unit for evaluation and stabilization of worsening of his psychosis, depression , worsening of OCD? inability to function and possible thoughts of harming self. Pt was seen at the tx team today, pt presented with fair personal hygiene, fare ADLs, guarded, seems to have some improvement, less psychotic, pt was more engaged into conversation, affect is more reactive. pt reported voices are "better, I am less paranoid", pt reported his anxiety is "better, I am calmer" as per nursing staff reported patient is more visible in the unit, started to go to groups. Patient reported to tolerate medications well, no side effects observed and reported, aims 0, no EPS. DSM 5 Diagnosis: schizoaffective disorder r/o OCD pt was also taking testosteron supplement which could give psychotic symptoms Medication Change: Yes (prolixin increased) Medical Record Reviewed: Yes Consults ordered or reviewed: medical consult appreciated Mental Status Examination - Cognitive Function Orientation: Person, Place, Situation, Time Memory: Intact Attention: Poor (some improvement) Concentration: Poor (some improvement) Association: WNL Fund of Knowledge: Poor - Mood Mood: Depressed, Anxious - Affect Affect: Flat - Formal Thought Process Formal Thought Process: Hallucinations (some improvement), Delusions (some improvement), Paranoia (some imprvement), Thought Broadcasting - Suicidal Ideation Suicidal Ideation: No - Homicidal Ideation Homicidal Ideation: No Goal/Treatment Plan - Goal/Treatment Plan Need for Continued Stay: Remain at risks for inpatient hospitalization, Severe depression anxiety, Discharge may exacerbated symptoms, Severe functional impairment Progress Toward Problem(s) and Goals/Treatment Plan: Milieu/structure/supportive therapy considering the fact pt was on abilify mantenna and still had psychotic symptoms , will try prolixin, risk, benefits and alternatives discussed, with the plan to give injectable form of prolixin prolixin 10mg tid for psychosis will continue Prozac 40mg po daily for mdd and anxiety, ocd (pt was given zoloft by mistake) will continue on Remeron 15 mg PO HS (correction to my previous note, pt was on remeron 15mg hs) will continue on klonopin 0.5mg tid for anxiety will continue all of his meds for medical issues medical evaluation will be called will call for collaterals from [facility] team SW evaluation possible d/c on Tuesday Estimated Date of D/C: 08/18/16 (we'll monitor closely)
[2016-08-14 07:17] VITALS: O2SAT 98
--- NOTE | 2016-08-14 09:21 | PCM.PYCHPN ---
Psychiatric Progress Note - Psychiatric Progress Note Patient seen today, length of contact: 25 minutes Patient Chief Complaint: better Problems Identified/Issues Discussed: I reviewed assessment and recent notes. Patient was interviewed at bedside. Patient is fairly groomed and cooperative with questioning. He is alert and oriented to date, year location and circumstances. Patient reports that he is improving on the unit and feels more hopeful. His affect demonstrates moderate range with appropriately reactivity. He denies having any suicidal thoughts or thoughts to harm others. He is not hallucinating and delusions were not elicited Nursing notes indicate the patient has been cooperative and appears better. He has been visible on the unit and there were no behavioral issues overnight. Diagnostic Results: schizoaffective disorder r/o OCD pt was also taking testosteron supplement which could give psychotic symptoms Medication Change: No ( ) Medical Record Reviewed: Yes Mental Status Examination - Cognitive Function Orientation: Person, Place, Situation, Time Memory: Intact Attention: Poor (some improvement) Concentration: Poor (some improvement) Association: WNL Fund of Knowledge: Poor - Mood Mood: Depressed (better), Anxious - Affect Affect: Flat, Other (moderate range, some reactivity) - Formal Thought Process Formal Thought Process: Hallucinations (some improvement), Delusions (some improvement), Paranoia (some imprvement), Thought Broadcasting - Suicidal Ideation Suicidal Ideation: No - Homicidal Ideation Homicidal Ideation: No Goal/Treatment Plan - Goal/Treatment Plan Need for Continued Stay: Remain at risks for inpatient hospitalization, Severe depression anxiety, Discharge may exacerbated symptoms, Severe functional impairment Progress Toward Problem(s) and Goals/Treatment Plan: * c/w current tx and plan * No new labs over the weekend * Vitals reviewed and noted below: Selected Entries 08/13/16 08/13/16 08/13/16 07:18 09:25 16:29 Temperature 97.3 F L Pulse Rate 68 68 87 Respiratory 20 Rate Blood Pressure 78/45 L 78/45 L 122/75 Estimated Date of D/C: 08/18/16 (we'll monitor closely)
[2016-08-15 07:55] VITALS: RESP 20
--- NOTE | 2016-08-15 09:55 | PCM.PYCHPN ---
Psychiatric Progress Note - Psychiatric Progress Note Patient seen today, length of contact: 25 minutes Patient Chief Complaint: better Problems Identified/Issues Discussed: I reviewed recent notes and met with patient at bedside. Patient is fairly groomed and cooperative with questioning. He is alert and oriented to date, year location and circumstances. Patient continue to report that he is improving on the unit and feels more hopeful. His affect demonstrates moderate range with some reactivity though some mild flatness remains. He denies having any suicidal thoughts or thoughts to harm others. He is not hallucinating and delusions were not elicited Nursing notes indicate the patient has been cooperative invisible on the unit. He still seems preoccupied and hard to engage. There were no behavioral issues over the weekend. Diagnostic Results: schizoaffective disorder r/o OCD pt was also taking testosteron supplement which could give psychotic symptoms Medication Change: No ( ) Medical Record Reviewed: Yes (reports, labs, vitals, notes) Mental Status Examination - Cognitive Function Orientation: Person, Place, Situation, Time Memory: Intact Attention: WNL (some improvement) Concentration: Poor (some improvement) Association: WNL Fund of Knowledge: Poor - Mood Mood: Depressed (better), Anxious - Affect Affect: Flat, Other ( moderate range with some reactivity though some mild flatness remains) - Formal Thought Process Formal Thought Process: Hallucinations (some improvement), Delusions ( none elicited), Paranoia (some imprvement), Thought Broadcasting - Suicidal Ideation Suicidal Ideation: No - Homicidal Ideation Homicidal Ideation: No Goal/Treatment Plan - Goal/Treatment Plan Need for Continued Stay: Remain at risks for inpatient hospitalization, Severe depression anxiety, Discharge may exacerbated symptoms, Severe functional impairment Progress Toward Problem(s) and Goals/Treatment Plan: * c/w current tx and plan * No new labs over the weekend * Vitals reviewed and noted below: Selected Entries 08/15/16 07:54 Temperature 98.1 F Pulse Rate 69 Respiratory 20 Rate Blood Pressure 94/61 L Estimated Date of D/C: 08/18/16 (we'll monitor closely)
--- NOTE | 2016-08-15 15:11 | PN ---
DATE: 08/15/2016 I see him resting in bed this morning. He is very comfortably. He is eating. He is feeling better. The medicines, he tells me, are helping him. He is on Glucophage, Klonopin, Lipitor, simethicone, milk of magnesia, Norvasc, Pepcid, Prolixin, Pro melvina, Remeron, and Tylenol. PHYSICAL EXAMINATION: VITAL SIGNS: Temp 98.1, 69 pulse, 94/61 blood pressure, 20 respiratory rate, 98% O2 sat on room air. HEENT: His head is atraumatic, normocephalic. His throat is moist. NECK: Supple. HEART: Regular rate. LUNGS: Clear to auscultation. ABDOMEN: Soft, obese, nontender. EXTREMITIES: No edema. LABORATORY DATA: The last was on the . His CBC and chemistry were good. His last blood sugar wa s 68. He is being seen by psychiatry. He is here for paranoid schizophrenia, diabetes, auditory hallucinat ions, hypertension and gastroesophageal reflux disease. We will continue aggressive treatment and ca re medically and psychologically. I do think he is improving and as per psychiatry. Jose Johnson DO cc: [id number] TT: 08/15/2016 14:41:08 Confirmation # [id number] Dictation # [id number] en
[2016-08-16 08:32] VITALS: BP 120/69; PULSE 64
--- NOTE | 2016-08-16 09:08 | PN ---
DATE: 08/16/2016 I saw the patient this morning, sleeping in his room on 5B. He is comfortable. He tells me he is fe eling better and he might be going home today if it is okay with his psychiatrist. He is currently on Glucophage, Klonopin, Lipitor, Maalox, milk of magnesia, Norvasc, Pepcid, Prolixin , Prozac, Remeron and Tylenol. He is eating well, participating and is feeling better. Those thoughts are now gone. PHYSICAL EXAMINATION: VITAL SIGNS: He has a 98.1 temp, 69 pulse, 120/69 blood pressure, 20 respiratory rate. HEENT: His head is atraumatic, normocephalic. HEART: Regular rate. LUNGS: Clear to auscultation. ABDOMEN: Soft, obese. EXTREMITIES: No edema. He has a 10.9 white count on the 4th, 15.6 hemoglobin. Last blood sugar was 71. His SMA-20 was very good on the 4th. He is being seen by psychiatry. He had severe depression, anxiety, paranoid schizophrenia, diabetes, auditory hallucinations, hypertension, gastroesophageal reflux disease and high cholesterol. As per psychiatry. If he does go home, I will follow him up on the outpatient. Jose Johnson DO cc: [id number] TT: 08/16/2016 09:08:03 Confirmation # [id number] Dictation # [id number] en
[2016-08-16 12:07] VITALS: TEMP 97.2
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
== END 2016-08-16 14:26 | disposition home or self-care (01) | DRG 885 ==
LOC: ED 00:08 → ERH 05:36 → PSYC 06:45
PROVIDERS: ADMIT Psychiatry & Neurology Psychiatry; ATTEND Psychiatry & Neurology Psychiatry
DX: F20.0 Paranoid schizophrenia (principal); K76.0 Fatty (change of) liver, not elsewhere classified; R44.0 Auditory hallucinations; E11.9 Type 2 diabetes mellitus without complications; I10 Essential (primary) hypertension; F25.9 Schizoaffective disorder, unspecified; E78.5 Hyperlipidemia, unspecified; F17.210 Nicotine dependence, cigarettes, uncomplicated; F32.89 Other specified depressive episodes; F42.9 Obsessive-compulsive disorder, unspecified; K21.9 Gastro-esophageal reflux disease without esophagitis; K80.20 Calculus of gallbladder without cholecystitis without obstruction; Z88.8 Allergy status to other drugs, medicaments and biological substances; R40.2412 Glasgow coma scale score 13-15, at arrival to emergency department; R00.0 Tachycardia, unspecified; R74.0 Nonspecific elevation of levels of transaminase and lactic acid dehydrogenase [LDH]; E78.00 Pure hypercholesterolemia, unspecified

== ENCOUNTER 2017-04-03 10:54 | Emergency (ER) | payer MEDICARE ==
[2017-04-03 10:56] VITALS: BMI 31.6
[2017-04-03 11:15] VITALS: RESP 18
[2017-04-03 11:59] LABS: BASO # 0.05 K/mm3 (0.0-2.0); BASO % 0.4 % (0.0-3.0); EOS # 0.4 (0.0-0.7); EOS % 3.4 % (1.5-5.0); GRAN # 7.85 (1.4-6.5); GRAN % 68.2 % (50.0-68.0); HEMATOCRIT 46.8 % (42.0-52.0); LYMPH # 2.4 (1.2-3.4); MEAN CELL VOLUME 86.2 fl (80.0-105.0); MEAN CORPUSCULAR HEMOGLOBIN 29.5 pg (25.0-35.0); MEAN CORPUSCULAR HGB CONC 34.2 g/dl (31.0-37.0); MEAN PLATELET VOLUME 9.7 fl (7.0-11.0); MONO # 0.8 (0.1-0.6); RED CELL DISTRIBUTION WIDTH 14.5 % (11.5-14.5); WHITE BLOOD COUNT 11.5 10^3/ul (4.5-11.0)
[2017-04-03 12:11] LABS: ALKALINE PHOSPHATASE 154 U/L (38-126); ALT/SGPT 124 U/L (7-56); AST/SGOT 96 U/L (17-59); BILIRUBIN,TOTAL 0.9 mg/dL (0.2-1.3); BLOOD UREA NITROGEN 8 mg/dL (7-21); CALCIUM 9.4 mg/dL (8.4-10.5); CARBON DIOXIDE 28 mmol/L (21-33); CHLORIDE 101 mmol/L (98-107); GFR AFRICAN-AMERICAN > 60; GLUCOSE,RANDOM 115 mg/dL (70-110); POTASSIUM 3.9 mmol/L (3.6-5.0); SODIUM 140 mmol/L (132-148); TOTAL PROTEIN 8.4 g/dL (5.8-8.3)
[2017-04-03 12:12] LABS: ALB/GLOB RATIO 1.2 (1.1-1.8)
--- NOTE | 2017-04-03 12:21 | RAD ---
HISTORY: psych eval COMPARISON: 08/09/2016 FINDINGS: LUNGS: No active pulmonary disease. PLEURA: No significant pleural effusion identified, no pneumothorax apparent. CARDIOVASCULAR: Normal. OSSEOUS STRUCTURES: No significant abnormalities. VISUALIZED UPPER ABDOMEN: Normal. OTHER FINDINGS: None. IMPRESSION: No active disease.
--- NOTE | 2017-04-03 12:27 | ED PDOC ---
Arrival/HPI - General Chief Complaint: Psychiatric Evaluation Time Seen by Provider: 04/03/17 11:16 Historian: Patient - History of Present Illness Narrative History of Present Illness (Text): 04/03/17 11:25 A 51 year old male, whose past medical history includes paranoid schizophrenia, diabetes, and liver injury, presents to the emergency department complaining of anxiety and paranoia for 3-4 days. Patient reports recently having medication changed and states "it doesn't work". Patient notes also experiencing auditory hallucinations, which he states want to hurt him. Patient denies any SI/HI, visual hallucinations, or any physical complaints. PMD: Dr. Johnson Time/Duration: < week (3-4 days) Symptom Onset: Gradual Symptom Course: Unchanged Past Medical History - Provider Review Nursing Documentation Reviewed: Yes - Infectious Disease Hx of Infectious Diseases: None - Cardiac Hx Cardiac Disorders: No Hx Hypertension: Yes - Pulmonary Hx Respiratory Disorders: No Hx Tuberculosis: No - Neurological HX Cerebrovascular Accident: No Hx Seizures: No - HEENT Hx HEENT Disorder: No - Renal Hx Renal Disorder: No - Endocrine/Metabolic Hx Endocrine Disorders: Yes Hx Diabetes Mellitus Type 2: Yes - Hematological/Oncological Hx Blood Disorders: No Hx Cancer: No - Integumentary Hx Dermatological Disorder: No - Musculoskeletal/Rheumatological Hx Musculoskeletal Disorders: No - Gastrointestinal Hx Gastrointestinal Disorders: Yes Hx Gastroesophageal Reflux: Yes - Genitourinary/Gynecological Hx Genitourinary Disorders: No Hx Sexually Transmitted Diseases: No - Psychiatric Hx Anxiety: Yes Hx Depression: Yes Hx Emotional Abuse: No Hx Physical Abuse: No Hx Schizophrenia: Yes Hx Sexual Abuse: No Hx Substance Use: No - Surgical History Other/Comment: liver surgery - Anesthesia Hx Anesthesia: Yes Hx Anesthesia Reactions: No Hx Malignant Hyperthermia: No Family/Social History - Physician Review Nursing Documentation Reviewed: Yes Family/Social History: No Known Family HX Smoking Status: Heavy Smoker > 10 Cigarettes Daily Hx Alcohol Use: No Hx Substance Use: No Allergies/Home Meds Allergies/Adverse Reactions: Allergies haloperidol [From Haldol] Allergy (Intermediate, Verified 04/03/17 11:11) SWELLING spasm haloperidol lactate [From Haldol] Allergy (Intermediate, Verified 04/03/17 11:11 ) SWELLING spasm risperidone [From Risperdal] Allergy (Verified 04/03/17 11:11) SWELLING Home Medications: Home Meds Medication Instructions Recorded Confirmed chlorproMAZINE [Thorazine] 10 mg PO TID 04/03/17 04/03/17 Review of Systems - Physician Review All systems were reviewed & negative as marked: Yes - Review of Systems Constitutional: absent: Other (patient denies any physical complaints) Psychiatric: Anxiety. absent: Suicidal Ideation, Other (denies homicidal ideation and visual hallucinations; patient notes also experiencing paranoia and auditory hallucinations) Physical Exam Vital Signs Reviewed: Yes Vital Signs Temp Pulse Resp BP Pulse Ox 04/03/17 16:32 98.6 F 78 18 120/86 98 04/03/17 11:35 94 H 18 131/79 96 04/03/17 11:05 98.7 F 105 H 18 149/90 97 Temperature: Afebrile Blood Pressure: Normal Pulse: Regular Respiratory Rate: Normal Appearance: Positive for: Well-Appearing Pain Distress: None Mental Status: Positive for: Alert and Oriented X 3 - Systems Exam Head: Present: Atraumatic, Normocephalic Pupils: Present: PERRL Extroacular Muscles: Present: EOMI Conjunctiva: Present: Normal Mouth: Present: Moist Mucous Membranes Neck: Present: Normal Range of Motion Respiratory/Chest: Present: Clear to Auscultation, Good Air Exchange. No: Respiratory Distress, Accessory Muscle Use Cardiovascular: Present: Regular Rate and Rhythm, Normal S1, S2. No: Murmurs Abdomen: Present: Normal Bowel Sounds. No: Tenderness, Distention, Peritoneal Signs Back: Present: Normal Inspection Upper Extremity: Present: Normal Inspection. No: Cyanosis, Edema Lower Extremity: Present: Normal Inspection. No: Edema Neurological: Present: GCS=15, CN II-XII Intact, Speech Normal Skin: Present: Warm, Dry, Normal Color. No: Rashes Psychiatric: Present: Anxious, Hallucinations (auditory hallucinations; no visual hallucinations). No: Suicidal Ideation, Homicidal Ideation Medical Decision Making ED Course and Treatment: 04/03/17 11:30 Impression: 51 year old male with anxiety, paranoia, and auditory hallucinations. Physical exam is overall unremarkable. Plan: -- EKG -- Chest X-ray -- Labs -- Urinalysis -- Reassess and disposition Prior Visits: Notes and results from previous visits were reviewed. Patient was last seen in the emergency department on 08/09/2016 for auditory hallucinations. Patient was admitted. Progress Notes: EKG: Ordered, reviewed, and independently interpreted the EKG. Rate : 90 BPM Rhythm : NSR Interpretation : Left Bundle Branch Block Comparison : No previous EKG for comparison. 04/03/2017 12:20 Chest X-ray IMPRESSION: No active disease. Dictator: Aramis Andino MD 04/03/17 13:29 Patient is now medically cleared for psychiatric evaluation and admission. - Lab Interpretations Lab Results: 04/03/17 11:50 04/03/17 11:50 Lab Results 04/03/17 12:19: Urine Opiates Screen Negative, Urine Methadone Screen Negative, Ur Barbiturates Screen Negative, Ur Phencyclidine Scrn Negative, Ur Amphetamines Screen Negative, U Benzodiazepines Scrn Negative, U Oth Cocaine Metabols Negative, U Cannabinoids Screen Negative 04/03/17 12:19: Urine Color Yellow, Urine Appearance Clear, Urine pH 6.5, Ur Specific [place] <= 1.005, Urine Protein Negative, Urine Glucose (UA) Negative, Urine Ketones Negative, Urine Blood Negative, Urine Nitrate Negative, Urine Bilirubin Negative, Urine Urobilinogen 0.2, Ur Leukocyte Esterase Negative 04/03/17 11:50: Alcohol, Quantitative < 10 04/03/17 11:50: Salicylates < 1 L, Acetaminophen < 10.0 L 04/03/17 11:50: Sodium 140, Potassium 3.9, Chloride 101, Carbon Dioxide 28, Anion Gap 15, BUN 8, Creatinine 0.7 L, Est GFR ( Amer) > 60, Est GFR (Non -Af Amer) > 60, Random Glucose 115 H, Calcium 9.4, Total Bilirubin 0.9, AST 96 H , ALT 124 H, Alkaline Phosphatase 154 H, Total Protein 8.4 H, Albumin 4.7, Globulin 3.8, Albumin/Globulin Ratio 1.2 04/03/17 11:50: WBC 11.5 H, RBC 5.43, Hgb 16.0, Hct 46.8, MCV 86.2, MCH 29.5, MCHC 34.2, RDW 14.5, Plt Count 222, MPV 9.7, Gran % 68.2 H, Lymph % (Auto) 21.0 L, [place] % (Auto) 7.0 H, Eos % (Auto) 3.4, Baso % (Auto) 0.4, Gran # 7.85 H, Lymph # 2.4, [place] # 0.8 H, Eos # 0.4, Baso # 0.05 I have reviewed the lab results: Yes - RAD Interpretation Radiology Orders: 04/03/17 11:16 CHEST PORTABLE [RAD] Stat - Medication Orders Current Medication Orders: Discontinued Medications Clonazepam (Klonopin) 0.5 mg PO STAT STA PRN Reason: Protocol Stop: 04/03/17 15:27 Last Admin: 04/03/17 15:32 Dose: 0.5 mg - Scribe Statement The provider has reviewed the documentation as recorded by the Abiola Daniels Provider Scribe Attestation: All medical record entries made by the Abiola were at my direction and personally dictated by me. I have reviewed the chart and agree that the record accurately reflects my personal performance of the history, physical exam, medical decision making, and the department course for this patient. I have also personally directed, reviewed, and agree with the discharge instructions and disposition. Disposition/Present on Arrival - Present on Arrival Any Indicators Present on Arrival: No History of DVT/PE: No History of Uncontrolled Diabetes: No Urinary Catheter: No History of Decub. Ulcer: No History Surgical Site Infection Following: None - Disposition Have Diagnosis and Disposition been Completed?: Yes Diagnosis: Schizophrenia Disposition: Transfer [facility] Disposition Time: 12:50 Condition: STABLE Referrals: Jose Johnson DO [Primary Care Provider] - Follow up with primary
[2017-04-03 12:51] LABS: PH,URINE 6.5 (4.7-8.0); URINE APPEARANCE CLEAR (CLEAR); URINE BILIRUBIN NEGATIVE (NEGATIVE); URINE BLOOD NEGATIVE (NEGATIVE); URINE COLOR YELLOW (YELLOW); URINE GLUCOSE (UA) NEGATIVE (NEGATIVE); URINE KETONE NEGATIVE (NEGATIVE); URINE LEUKOCYTE ESTERASE NEGATIVE Leu/uL (NEGATIVE); URINE PROTEIN NEGATIVE mg/dL (<30 mg/dL); URINE UROBILINOGEN 0.2 E.U./dL (<1 E.U./dL)
[2017-04-03 16:32] VITALS: BP 120/86; PULSE 78; TEMP 98.6; O2SAT 98
--- NOTE | 2017-04-04 09:50 | CARD ---
APPROVED REPORT EKG Measurement Heart [id number] <Conclusion> Normal sinus rhythm Left bundle branch block, new
== END 2017-04-03 17:03 | disposition short-term general hospital (02) ==
LOC: ED 10:54 → UNDOADMIN 12:58 → ERH 12:58 → ED 17:03
DX: F20.9 Schizophrenia, unspecified (principal); E11.9 Type 2 diabetes mellitus without complications; I10 Essential (primary) hypertension; F17.210 Nicotine dependence, cigarettes, uncomplicated
CPT/HCPCS: 71010; 80053; 81003; 85025; 90791; 93005; 99284; G0480

== ENCOUNTER 2017-05-23 14:21 | Inpatient (IN) | payer MEDICARE, OTHER ==
[2017-05-23 14:21] VITALS: BMI 31.6
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
[2017-05-23 15:36] LABS: BASO # 0.03 K/mm3 (0.0-2.0); BASO % 0.3 % (0.0-3.0); EOS # 0.1 (0.0-0.7); EOS % 1.1 % (1.5-5.0); GRAN # 7.42 (1.4-6.5); GRAN % 71.1 % (50.0-68.0); HEMOGLOBIN 15.6 g/dL (14.0-18.0); LYMPH # 2.1 (1.2-3.4); LYMPH % 20.2 % (22.0-35.0); MEAN CELL VOLUME 85.7 fl (80.0-105.0); MEAN CORPUSCULAR HEMOGLOBIN 29.8 pg (25.0-35.0); MEAN CORPUSCULAR HGB CONC 34.8 g/dl (31.0-37.0); MEAN PLATELET VOLUME 10.2 fl (7.0-11.0); MONO # 0.8 (0.1-0.6); MONO % 7.3 % (1.0-6.0); RBC 5.23 10^6/uL (3.5-6.1); RED CELL DISTRIBUTION WIDTH 13.7 % (11.5-14.5); WHITE BLOOD COUNT 10.4 10^3/ul (4.5-11.0)
[2017-05-23 15:48] LABS: ACETAMINOPHEN < 10.0 ug/ml (10.0-20.0); SALICYLATE < 1 mg/dL (2.0-20.0)
[2017-05-23 15:54] LABS: PH,URINE 6.5 (4.7-8.0); URINE APPEARANCE CLEAR (CLEAR); URINE BILIRUBIN NEGATIVE (NEGATIVE); URINE BLOOD TRACE-INTACT (NEGATIVE); URINE COLOR YELLOW (YELLOW); URINE GLUCOSE (UA) >=1000 mg/dL (NEGATIVE); URINE LEUKOCYTE ESTERASE NEGATIVE Leu/uL (NEGATIVE); URINE NITRATE NEGATIVE (NEGATIVE); URINE PROTEIN NEGATIVE mg/dL (<30 mg/dL); URINE UROBILINOGEN 0.2 E.U./dL (<1 E.U./dL)
[2017-05-23 15:59] LABS: URINE EPITHELIAL CELLS 0 - 2 /hpf (0-5); URINE RBC 0 - 2 /hpf (0-2); URINE WBC 0 - 2 /hpf (0-6)
[2017-05-23 15:59] LABS: ALB/GLOB RATIO 1.2 (1.1-1.8); ALBUMIN 4.7 g/dL (3.0-4.8); ALT/SGPT 59 U/L (7-56); AST/SGOT 79 U/L (17-59); BLOOD UREA NITROGEN 8 mg/dL (7-21); CALCIUM 9.8 mg/dL (8.4-10.5); GFR AFRICAN-AMERICAN > 60; GFR NON-AFRICAN AMERICAN > 60
[2017-05-23] MEDS ORDERED: Sodium Chloride 0.9% 1,000 ML IV STA (16:08)
[2017-05-23] MEDS ORDERED: Insulin Reg-MEDIUM-Coverage IV STA ×2 (16:08→16:23)
[2017-05-23 16:13] LABS: PHENCYCLIDINE, UR NEGATIVE (NEGATIVE)
[2017-05-23] MEDS ORDERED: Insulin Regular 1 UNITS/0.01 ML ML IV STA (16:38)
[2017-05-23 16:41] LABS: BARBITURATES, UR NEGATIVE (NEGATIVE); BENZODIAZEPINES, UR NEGATIVE (NEGATIVE); OPIATES, UR NEGATIVE (NEGATIVE)
[2017-05-24] MEDS ORDERED: Magnesium Hydroxide Susp 30 ml UD PO PRN (00:33)
[2017-05-24] MEDS ORDERED: Alum-Mag Hydrox-Simethicone Susp (30 mL) PO PRN (00:33)
[2017-05-24 03:48] VITALS: RESP 20
[2017-05-24 03:49] VITALS: O2SAT 96
--- NOTE | 2017-05-24 03:56 | PCM.BM ---
<WilfredHal - Last Filed: 05/24/17 03:53> Treatment Plan Problems - Problems identified on initial assessmt Auditory hallucinations Date Initiated: 05/23/17 Time Initiated: 23:11 Assessment reference: NA Status: Active Priority: 1 Altered thought process Date Initiated: 05/23/17 Time Initiated: 23:11 Assessment reference: NA Status: Active Priority: 2 Medication Nonadherence Date Initiated: 05/23/17 Time Initiated: 23:11 Assessment reference: NA Status: Active Priority: 3 Ineffective Coping Date Initiated: 05/23/17 Time Initiated: 23:11 Assessment reference: NA Status: Active Priority: 4 Treatment assets and liabiliti Patient Assests: adapts well, cooperative, insightful, self-reliant, ADL independent, negotiates basic needs, good past tx response Patient Liabilities: live alone, medical problems - Milieu Protocol Maintain good personal hygiene: daily Encourage regular showers, every shift Remind patient to perform daily oral care, every shift Assist patient to perform ADL's Maintain personal safety: every shift Educate patient to report safety concerns to staff, every shift Monitor environment for contraband/sharps Medication safety: Monitor for expected outcome, potential side effects: every shift, Assess barriers to learning: every shift, Assess readiness for medication education: every shift Family Contact Family involvement: Famliy/SO not involved Family contact: Patient declines to allow family contact at present - Goals for Treatment Patient goals for treatment: "Get back to normal thinking without voices, delusions, paranoia, projected thought." Discharge/Continuing Care - Education Needs Education Needs: Patient Medication, Patient Diagnosis/Disease Process, Patient Coping Skills, Patient Anger Management skills, Patient Placement options, Patient Community resources, Patient Activities of Daily Living, Patient Pain, Patient Nutrition, Patient Uses of Medical Equipment, Patient Health Practices/ Safety, Patient Personal Hygiene/Grooming, Patient Aftercare Safety Plan, Patient Other - Discharge Discharge Criteria: Tolerates medication w/o severe side effects, Free of paranoid thoughts <Joanna Ching - Last Filed: 05/27/17 16:14> Family Contact - Outside Agency [facility] Care involvment: Following patient during stay, Information-sharing Agency contact name: [facility]
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
--- NOTE | 2017-05-24 08:10 | RAD ---
HISTORY: admission COMPARISON: 04/03/2017 FINDINGS: LUNGS: No active pulmonary disease. PLEURA: No significant pleural effusion identified, no pneumothorax apparent. CARDIOVASCULAR: Normal. OSSEOUS STRUCTURES: No significant abnormalities. VISUALIZED UPPER ABDOMEN: Normal. OTHER FINDINGS: None. IMPRESSION: No active disease.
[2017-05-24 08:36] LABS: GLUCOSE,FASTING 206 mg/dL (65-110); HDL CHOLESTEROL 19 mg/dL (29-60)
[2017-05-24 08:47] LABS: LDL CHOLESTEROL 74 mg/dL (0-129)
[2017-05-24] MEDS: FLUVOXAMINE 50 MG PO SCH (09:43)
[2017-05-24] MEDS: Insulin Reg-MEDIUM-Coverage SC SCH ×3 (12:13→22:26)
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
--- NOTE | 2017-05-25 01:28 | PN ---
DATE: SUBJECTIVE: The patient is a 51-year-old white male with a history of chronic paranoid schizophrenia, who is admitted in a depressed and paranoid state. The patient remains alert, oriented, withdrawn, depressed, indicates that he is paranoid, hearing upsetting voices. PHYSICAL EXAMINATION VITAL SIGNS: Blood pressure 124/80, pulse 86, respiratory rate is 20, temperature 98.4. The patient is being maintained on insulin, Januvia for diabetic control, Klonopin 0.5 mg at bedtime, Lipitor 10 mg daily at dinner, Pepcid 20 mg b.i.d., Trilafon 4 mg t.i.d., Remeron 15 mg at bedtime, and TriCor 145 mg. Nursing notes, disheveled in appearance and reiterating of his auditory hallucinations telling him to kill himself. The patient appears compliant with the treatment program. Fabrizio Castro MD/ PhD
[2017-05-25 08:03] VITALS: TEMP 97.9
[2017-05-25] MEDS: Insulin Reg-MEDIUM-Coverage SC SCH ×4 (08:10→22:05)
[2017-05-25 08:13] LABS: HEMOGLOBIN 14.6 g/dL (14.0-18.0); MEAN CELL VOLUME 86.8 fl (80.0-105.0); MEAN CORPUSCULAR HEMOGLOBIN 28.9 pg (25.0-35.0); MEAN CORPUSCULAR HGB CONC 33.3 g/dl (31.0-37.0); RBC 5.06 10^6/uL (3.5-6.1); RED CELL DISTRIBUTION WIDTH 14.1 % (11.5-14.5); WHITE BLOOD COUNT 7.3 10^3/ul (4.5-11.0)
[2017-05-25 08:40] LABS: ALB/GLOB RATIO 1.2 (1.1-1.8); ALBUMIN 4.1 g/dL (3.0-4.8); ALT/SGPT 110 U/L (7-56); AST/SGOT 209 U/L (17-59); BLOOD UREA NITROGEN 14 mg/dL (7-21); CALCIUM 9.1 mg/dL (8.4-10.5); GFR AFRICAN-AMERICAN > 60; GFR NON-AFRICAN AMERICAN > 60
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
--- NOTE | 2017-05-25 09:59 | PN ---
DATE: SUBJECTIVE: I saw Alvarez resting comfortably in bed. He slept fairy well. He is trying to get better, may be feeling a little bit better. He is on insulin coverage, Januvia, Klonopin, Lipitor, Maalox, milk of magnesia, Pepcid, perphenazine, Remeron, TriCor, and Tylenol. PHYSICAL EXAMINATION: VITAL SIGNS: Temperature 97.9, 78 pulse, 95/63 blood pressure, 20 respiratory rate, and 96% O2 sat on room air. HEENT: Head is atraumatic, normocephalic. HEART: Regular rate. LUNGS: Decreased breath sounds, but clear. ABDOMEN: Soft, obese. EXTREMITIES: No edema. LABORATORY DATA: His labs on the , he has 7.3 white count, 14.6 hemoglobin, and 43.9 hematocrit with 207 platelets. He has 138 sodium, potassium 3.8, BUN is , creatinine 0.8, GFR is greater than 60, last blood sugar was 177, calcium is 9.1, and total bilirubin is 0.6. Liver enzymes are elevated, AST is 209, ALT is 110, and alkaline phosphatase is Total protein is 7.6. TSH is 1.11. I am going to get GI to evaluate his elevated liver enzymes, we will get their opinion. He is being seen by Psychiatry. He has chronic paranoid schizophrenia, depressed, and multiple medical problems, GI in for liver enzymes evaluation. Jose Johnson DO MTDD
[2017-05-25] MEDS: FLUVOXAMINE 50 MG PO SCH (10:03)
--- NOTE | 2017-05-25 15:05 | CT ---
PROCEDURE: CT Abdomen with and without intravenous contrast HISTORY: abnormal LFTs COMPARISON: 06/14/2015 abdominal ultrasound TECHNIQUE: Axial images of the abdomen from lung bases to iliac crest with and without intravenous contrast enhancement. Coronal and sagittal reformats generated. Oral contrast also administered. Intravenous contrast Dose: 150 cc Omnipaque 350 Radiation dose: Total exam DLP = 1719.63 mGy-cm. This CT exam was performed using one or more of the following dose reduction techniques: Automated exposure control, adjustment of the mA and/or kV according to patient size, and/or use of iterative reconstruction technique. FINDINGS: LOWER THORAX: Unremarkable. LIVER: Hepatomegaly, hepatic steatosis. No focal hepatic masses identified. Changes in the periphery of the liver, liver contour suggesting prior surgery perhaps wedge resection. Unremarkable vascular structures including hepatic artery venous systems patent portal venous system. GALLBLADDER AND BILE DUCTS: Cholelithiasis without CT evidence of acute cholecystitis. PANCREAS: Unremarkable. No gross lesion or ductal dilatation. SPLEEN: Unremarkable. ADRENALS: Unremarkable. No mass. KIDNEYS AND URETERS: Unremarkable. No hydronephrosis. No solid mass. VASCULATURE: Unremarkable. No aortic aneurysm. BOWEL: Unremarkable. No obstruction. No gross mural thickening. APPENDIX: Normal appendix. PERITONEUM: Unremarkable. No free fluid. No free air. LYMPH NODES: Unremarkable. No enlarged lymph nodes. BLADDER: Unremarkable. REPRODUCTIVE: Unremarkable. BONES: No acute fracture. OTHER FINDINGS: None. IMPRESSION: Hepatomegaly/hepatic steatosis without focal abnormality. Cholelithiasis without CT evidence of acute cholecystitis.
[2017-05-25 17:14] LABS: HEPATITIS B SURFACE AG NEGATIVE (NEGATIVE)
[2017-05-25 17:27] LABS: HEPATITIS A IGM NEGATIVE (NEGATIVE)
[2017-05-25 17:32] LABS: HEPATITIS C ANTIBODY Negative (NEGATIVE)
[2017-05-25 18:21] LABS: HEPATITIS B CORE AB Negative (NEGATIVE)
[2017-05-25] MEDS: FLUVOXAMINE 100 MG PO SCH (21:33)
[2017-05-25] MEDS ORDERED: Home Med 1 UNIT PO SCH (22:00)
--- NOTE | 2017-05-26 05:36 | PN ---
DATE: SUBJECTIVE: The patient is a 51-year-old white male with a history of chronic paranoid schizophrenia, admitted in a depressed and paranoid state. The patient is presently alert, oriented, his affect appears brighter than yesterday, he still feels, however, paranoid and feels that he has thought broadcasting. The patient was seen by Dr. Leslie, who has recommended a cross-section imaging of his liver with triple phase CT as well as checking his viral hepatitis serology. The possibility of a liver biopsy was suggested (on an outpatient basis) when this acute issues resolve. It was also felt he would benefit from outpatient age-appropriate colon cancer screening. A liver CT taken today showed hepatomegaly/hepatic steatosis without focal abnormality. Cholelithiasis without CT evidence of acute cholecystitis. MEDICATIONS: The patient is presently being maintained on Januvia, Klonopin 1 mg t.i.d., perphenazine 4 mg t.i.d., Remeron 15 mg at bedtime, Luvox 50 mg a.m. and 100 mg at bedtime. PHYSICAL EXAMINATION: VITAL SIGNS: Blood pressure 107/70, pulse 72, temperature 97, respiratory rate 20. LABORATORY DATA: A CBC and differential today was within normal limits. Hepatitis screen was negative. His blood sugar has been elevated today ranging from 177-235. ASSESSMENT AND PLAN: My sense is that the patient is improving in his mood, affect, and cognition. Nursing notes that he is still anxious and depressed. He is denying suicidal or homicidal ideation, but does feel overwhelmed. Fabrizio Castro MD/ PhD
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
[2017-05-26 08:23] LABS: HEMOGLOBIN 14.5 g/dL (14.0-18.0); MEAN CELL VOLUME 87.7 fl (80.0-105.0); MEAN CORPUSCULAR HEMOGLOBIN 29.2 pg (25.0-35.0); MEAN CORPUSCULAR HGB CONC 33.3 g/dl (31.0-37.0); MEAN PLATELET VOLUME 10.1 fl (7.0-11.0); RBC 4.96 10^6/uL (3.5-6.1); RED CELL DISTRIBUTION WIDTH 14.3 % (11.5-14.5); WHITE BLOOD COUNT 6.9 10^3/ul (4.5-11.0)
[2017-05-26 09:20] LABS: ALB/GLOB RATIO 1.1 (1.1-1.8); ALBUMIN 3.9 g/dL (3.0-4.8); ALT/SGPT 106 U/L (7-56); AST/SGOT 158 U/L (17-59); BLOOD UREA NITROGEN 13 mg/dL (7-21); CALCIUM 9.1 mg/dL (8.4-10.5); GFR AFRICAN-AMERICAN > 60; GFR NON-AFRICAN AMERICAN > 60
[2017-05-26 09:56] LABS: INR 1.09 (0.93-1.08); PROTHROMBIN TIME 12.6 SECONDS (9.4-12.5)
[2017-05-26] MEDS: FLUVOXAMINE 50 MG PO SCH (09:58)
[2017-05-26] MEDS: Insulin Reg-MEDIUM-Coverage SC SCH ×4 (10:03→22:42)
--- NOTE | 2017-05-26 14:00 | PN ---
DATE: SUBJECTIVE: He has not been feeling well on his abdomen. I called in Gastroenterology specifically for his elevated liver enzymes. He has schizophrenia, hypertension, diabetes, high cholesterol, GERD, auditory hallucinations and he is just not doing that well with his abdomen, so we will do the best we can. He is on insulin coverage, Januvia, Klonopin, Lipitor, milk of magnesia, Pepcid, Phenazine, Remeron, TriCor, and Tylenol. PHYSICAL EXAMINATION: VITAL SIGNS: He has a 97.9 temperature, 78 pulse, 102/67 blood pressure, 20 respiratory rate. HEENT: Head is atraumatic, normocephalic. HEART: Regular rate. LUNGS: Clear to auscultation. ABDOMEN: Mildly tender diffusely. No guarding. No rebound. Decreased bowel sounds. EXTREMITIES: No edema. LABORATORY DATA: He has 6.9 white count, 14.5 hemoglobin, 43.5 hematocrit with 200 platelets. INR is 1.09. He has 138 sodium, potassium is 4, BUN 13, creatinine 0.7, GFR is greater than 60, sugars 206, calcium 9.1, total bilirubin is 0.5, AST is 158, ALT is 106, alk phos 142, total protein 7.4. Urine is clean. Urine drug screen is clean. Hepatitis screen is negative. He was seen by Psychiatry. He had a liver CAT scan. He was seen by Gastroenterology, which is good. CAT scan of the liver showed hepatomegaly, hepatic steatosis without focal abnormality, cholelithiasis without CT evidence of acute cholecystitis. We will continue with aggressive treatment and care. Psychologically, encourage him to participate in groups. For his abdomen, as per GI. We will continue the aggressive treatment and care. Jose Johnson DO
[2017-05-26] MEDS: FLUVOXAMINE 100 MG PO SCH (21:18)
[2017-05-26 22:45] VITALS: BP 105/63; PULSE 80
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
[2017-05-27 08:28] LABS: ALB/GLOB RATIO 1.2 (1.1-1.8); ALBUMIN 3.9 g/dL (3.0-4.8); ALT/SGPT 99 U/L (7-56); AST/SGOT 129 U/L (17-59); BLOOD UREA NITROGEN 13 mg/dL (7-21); CALCIUM 9.1 mg/dL (8.4-10.5); GFR AFRICAN-AMERICAN > 60; GFR NON-AFRICAN AMERICAN > 60
[2017-05-27] MEDS: FLUVOXAMINE 50 MG PO SCH (08:30)
[2017-05-27] MEDS: Insulin Reg-MEDIUM-Coverage SC SCH ×2 (08:33→12:08)
--- NOTE | 2017-05-27 08:56 | PN ---
DATE: 05/26/2017 HISTORY OF PRESENT ILLNESS: The patient is a 51-year-old white male admitted with depression, suicidal ideation, and auditory hallucinations. The patient was interviewed in treatment team. He indicated that he is "feeling better, but not that much better." He reports that he is still depressed and that his disturbing thoughts have decreased. He gave us an example of negativistic or intrusive thoughts such as when seeing a person of color calling thinking that, that person is or thinking of the word nigger. Interestingly, the patient's father is and and his mother is of [place] and [place] ancestry. The patient did interactive both sides of the family. He reports 7-day prior psychiatric admissions. He feels that people can hear his thoughts and gets paranoid with conversations around him. He reported having been hospitalized from 2006 to 2014 in [facility] for "doing something wrong" (that he does not want to talk about it). The patient reported that his longest period of symptom free ideation was while at [facility] for 2-year period. He denied a history of drug or alcohol use, although he has had problems with his liver. He denied a familial psychiatric history. ASSESSMENT AND PLAN: The patient is being monitored for further improvement in his mood, affect, suicidal ideation, thought broadcasting, thought insertion, negativism, and intrusive thoughts. His elevated liver functions, hyperlipidemia, hypertension, and diabetes mellitus is being addressed by medical care by Dr. Jose Johnson. He is being maintained on Januvia 100 mg daily, Klonopin 1 mg t.i.d., Lipitor 10 mg at dinner, Pepcid 20 mg b.i.d., perphenazine 4 mg t.i.d., Remeron 15 mg at bedtime, and TriCor 145 mg daily. Blood pressure 105/63, pulse 80, temperature 97.9, and respiratory rate 20. Fabrizio Castro MD/ PhD
--- NOTE | 2017-05-27 16:35 | PN ---
DATE: SUBJECTIVE: I saw Alvarez resting comfortably in bed. He is in good spirits. He has no complaints. He tells me he is feeling a little bit better. Now he is getting on back on his psychological medications. He also tells me he does not take Januvia, takes metformin. There was no medication when he first came in. [id number] pretty much something simple and now I switched him back to his Glucophage and I stopped his Januvia. He is on Glucophage, Klonopin, Lipitor, Maalox, milk of magnesia, Pepcid, perphenazine, Remeron, TriCor, and Tylenol. PHYSICAL EXAMINATION: VITAL SIGNS: He has a 97.9 temperature, 78 pulse, 102/67 blood pressure, 20 respiratory rate. HEENT: His head is atraumatic, normocephalic. HEART: Regular rate. LUNGS: Clear to auscultation. ABDOMEN: Soft. EXTREMITIES: No edema. LABORATORY DATA: He had blood test on 05/26/2017, 6.9 white count, 14.5 hemoglobin, 200 platelets. He has 140 sodium, potassium is 4.1, BUN is 30, creatinine 0.8, GFR is greater than 60, sugar is 214, calcium is 9.1, total bilirubin is 0.4. AST is 129, ALT is 99, alk phos is 126, total protein 7.2. ASSESSMENT AND PLAN: I do think he is going to improve. I encouraged him to continue with his psychological medications and groups and encouraged him to participate. He also has history of schizophrenia, hypertension, high cholesterol, gastroesophageal reflux disease, abdominal pain, increased LFTs. He has been seen GI I changed him back to metformin and stopped Januvia. Jose Johnson DO MTDD
== END 2017-05-27 14:43 | disposition home or self-care (01) | DRG 885 ==
LOC: ED 14:21 → ERH 19:52 → PSYC 23:14
PROVIDERS: ADMIT Psychiatry & Neurology Addiction Medicine; ATTEND Psychiatry & Neurology Addiction Medicine
DX: F20.0 Paranoid schizophrenia (principal); F42.9 Obsessive-compulsive disorder, unspecified; R45.851 Suicidal ideations; K76.0 Fatty (change of) liver, not elsewhere classified; E11.9 Type 2 diabetes mellitus without complications; E78.00 Pure hypercholesterolemia, unspecified; I10 Essential (primary) hypertension; E78.1 Pure hyperglyceridemia; K21.9 Gastro-esophageal reflux disease without esophagitis; F17.210 Nicotine dependence, cigarettes, uncomplicated; Z91.19 Patient's noncompliance with other medical treatment and regimen

== ENCOUNTER 2017-11-01 20:58 | Emergency (ER) | payer MEDICARE, OTHER ==
[2017-11-01 21:20] VITALS: BMI 26.5
[2017-11-01 22:13] LABS: BASO # 0.02 K/mm3 (0.0-2.0); BASO % 0.3 % (0.0-3.0); EOS # 0.2 (0.0-0.7); EOS % 3.3 % (1.5-5.0); GRAN # 3.48 (1.4-6.5); GRAN % 47.7 % (50.0-68.0); LYMPH # 3.1 (1.2-3.4); LYMPH % 43.1 % (22.0-35.0); MEAN CELL VOLUME 86.1 fl (80.0-105.0); MEAN CORPUSCULAR HEMOGLOBIN 30.2 pg (25.0-35.0); MEAN CORPUSCULAR HGB CONC 35.1 g/dl (31.0-37.0); MEAN PLATELET VOLUME 9.2 fl (7.0-11.0); MONO # 0.4 (0.1-0.6); MONO % 5.6 % (1.0-6.0); RBC 5.62 10^6/uL (3.5-6.1); RED CELL DISTRIBUTION WIDTH 14.7 % (11.5-14.5); WHITE BLOOD COUNT 7.3 10^3/ul (4.5-11.0)
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
[2017-11-01 22:23] LABS: ACETAMINOPHEN < 10.0 ug/ml (10.0-20.0); SALICYLATE < 1 mg/dL (2.0-20.0)
[2017-11-01 22:24] LABS: ALB/GLOB RATIO 1.2 (1.1-1.8); ALBUMIN 4.3 g/dL (3.0-4.8); ALT/SGPT 43 U/L (7-56); AST/SGOT 48 U/L (17-59); BLOOD UREA NITROGEN 8 mg/dL (7-21); CALCIUM 9.1 mg/dL (8.4-10.5); GFR AFRICAN-AMERICAN > 60; GFR NON-AFRICAN AMERICAN > 60
[2017-11-01 22:36] VITALS: RESP 20
[2017-11-02 00:05] LABS: URINE BILIRUBIN NEGATIVE (NEGATIVE); URINE BLOOD NEGATIVE (NEGATIVE); URINE GLUCOSE (UA) NEGATIVE (NEGATIVE); URINE LEUKOCYTE ESTERASE NEGATIVE Leu/uL (NEGATIVE); URINE PROTEIN NEGATIVE mg/dL (<30 mg/dL); URINE UROBILINOGEN 0.2 E.U./dL (<1 E.U./dL)
[2017-11-02 00:06] LABS: URINE APPEARANCE CLEAR (CLEAR); URINE COLOR YELLOW (YELLOW)
[2017-11-02 00:47] LABS: BARBITURATES, UR NEGATIVE (NEGATIVE); BENZODIAZEPINES, UR NEGATIVE (NEGATIVE); OPIATES, UR NEGATIVE (NEGATIVE); PHENCYCLIDINE, UR NEGATIVE (NEGATIVE)
[2017-11-02 00:51] VITALS: BP 134/75; PULSE 94; TEMP 98.5; O2SAT 99
--- NOTE | 2017-11-02 13:05 | CARD ---
APPROVED REPORT EKG Measurement Heart [id number] <Conclusion> Sinus tachycardia Possible Left atrial enlargement Left bundle branch block Abnormal ECG
== END 2017-11-02 00:49 | disposition left against medical advice (07) ==
LOC: ED 20:58
DX: F20.9 Schizophrenia, unspecified (principal)
CPT/HCPCS: 80053; 81003; 85025; 90791; 93005; 99284; G0480

== ENCOUNTER 2018-01-16 20:20 | Inpatient (IN) | payer MEDICARE, OTHER ==
[2018-01-16 20:43] VITALS: BMI 27.4
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
[2018-01-16 21:57] LABS: HEMOGLOBIN 15.1 g/dL (14.0-18.0); MEAN CELL VOLUME 87.6 fl (80.0-105.0); MEAN CORPUSCULAR HEMOGLOBIN 30.3 pg (25.0-35.0); MEAN CORPUSCULAR HGB CONC 34.6 g/dl (31.0-37.0); MEAN PLATELET VOLUME 9.4 fl (7.0-11.0); RBC 4.98 10^6/uL (3.5-6.1); RED CELL DISTRIBUTION WIDTH 13.1 % (11.5-14.5); WHITE BLOOD COUNT 5.5 10^3/ul (4.5-11.0)
[2018-01-16 22:05] LABS: ALB/GLOB RATIO 1.2 (1.1-1.8); ALBUMIN 4.1 g/dL (3.0-4.8); ALT/SGPT 48 U/L (7-56); AST/SGOT 79 U/L (17-59); BLOOD UREA NITROGEN 7 mg/dL (7-21); CALCIUM 9.2 mg/dL (8.4-10.5); GFR NON-AFRICAN AMERICAN > 60
[2018-01-17] MEDS ORDERED: Potassium Chloride 20 mEq ER Tab PO STA (00:05)
[2018-01-17 00:54] LABS: PH,URINE 6.5 (4.7-8.0); URINE BILIRUBIN NEGATIVE (NEGATIVE); URINE BLOOD NEGATIVE (NEGATIVE); URINE GLUCOSE (UA) NEGATIVE (NEGATIVE); URINE LEUKOCYTE ESTERASE NEGATIVE Leu/uL (NEGATIVE); URINE PROTEIN NEGATIVE mg/dL (<30 mg/dL)
[2018-01-17 01:03] LABS: URINE APPEARANCE CLEAR (CLEAR); URINE COLOR YELLOW (YELLOW)
[2018-01-17 01:16] LABS: BARBITURATES, UR NEGATIVE (NEGATIVE); BENZODIAZEPINES, UR NEGATIVE (NEGATIVE); OPIATES, UR NEGATIVE (NEGATIVE); PHENCYCLIDINE, UR NEGATIVE (NEGATIVE)
[2018-01-17] MEDS ORDERED: Magnesium Hydroxide Susp 30 ml UD PO PRN (04:08)
[2018-01-17] MEDS ORDERED: Alum-Mag Hydrox-Simethicone Susp (30 mL) PO PRN (04:08)
[2018-01-17 04:31] VITALS: O2SAT 97
--- NOTE | 2018-01-17 05:20 | PCM.BM ---
<Chantal Parker - Last Filed: 01/17/18 05:17> Treatment Plan Problems - Problems identified on initial assessmt Auditory Hallucinations Date Initiated: 01/17/18 Time Initiated: 18 Assessment reference: NA Status: Active Altered Thought Process Date Initiated: 01/17/18 Time Initiated: 05:18 Assessment reference: NA Status: Active Ineffective Coping Date Initiated: 01/17/18 Time Initiated: 05:18 Assessment reference: NA Status: Active Medication nonadherence Date Initiated: 01/17/18 Time Initiated: 05:18 Assessment reference: NA Status: Active Treatment assets and liabiliti Patient Assests: adapts well, cooperative, insightful, self-reliant, ADL independent, negotiates basic needs, good past tx response Patient Liabilities: financial problems, poor support system - Milieu Protocol Maintain good personal hygiene: daily Encourage regular showers, daily Remind patient to perform daily oral care, daily Assist patient to perform ADL's Conduct patient checks and document Observation sheet: Q15 minutes Maintain personal safety: every shift Educate patient to report safety concerns to staff, every shift Monitor environment for contraband/sharps Medication safety: Monitor for expected outcome, potential side effects: every shift, Assess barriers to learning: every shift, Assess readiness for medication education: every shift Discharge/Continuing Care - Education Needs Education Needs: Patient Medication, Patient Diagnosis/Disease Process, Patient Coping Skills, Patient Community resources, Patient Activities of Daily Living, Patient Nutrition, Patient Health Practices/Safety, Patient Personal Hygiene/ Grooming, Patient Aftercare Safety Plan - Discharge Discharge Criteria: Tolerates medication w/o severe side effects, Free of paranoid thoughts, Free of agitation, Normal sleep pattern, Ability to care for self, Reduction of target symptoms <Camila Wang - Last Filed: 01/18/18 11:18> Family Contact - Outside Agency [facility] involvment: Information-sharing Agency contact name: [facility] Agency contact number: [phone] <Joanna Ching - Last Filed: 01/18/18 13:21>
[2018-01-17] MEDS ORDERED: Insulin Lispro (humaLOG) LOW Coverage SC SCH (07:30)
[2018-01-17 07:52] LABS: GLUCOSE,FASTING 100 mg/dL (65-110); HDL CHOLESTEROL 34 mg/dL (29-60)
[2018-01-17 08:02] LABS: LDL CHOLESTEROL 81 mg/dL (0-129)
--- NOTE | 2018-01-17 08:38 | RAD ---
Date of service: 01/16/2018 HISTORY: fever COMPARISON: 05/23/2017. FINDINGS: LUNGS: The lungs are well inflated and clear. PLEURA: No significant pleural effusion identified, no pneumothorax apparent. CARDIOVASCULAR: Normal. OSSEOUS STRUCTURES: No significant abnormalities. VISUALIZED UPPER ABDOMEN: Normal. OTHER FINDINGS: None. IMPRESSION: No active pulmonary disease.
--- NOTE | 2018-01-17 10:31 | CARD ---
APPROVED REPORT Date of service: 01/16/2018 EKG Measurement Heart [id number] <Conclusion> Normal sinus rhythm Left bundle branch block Abnormal ECG
[2018-01-17] MEDS: Insulin Reg-MEDIUM-Coverage SC SCH ×3 (12:52→21:28)
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
[2018-01-17] MEDS: FLUVOXAMINE 50 MG PO SCH (16:24)
[2018-01-17] MEDS: FLUVOXAMINE 100 MG PO SCH (16:24)
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
[2018-01-18 07:00] VITALS: RESP 20
[2018-01-18 08:15] LABS: HEMOGLOBIN 14.9 g/dL (14.0-18.0); MEAN CELL VOLUME 89.7 fl (80.0-105.0); MEAN CORPUSCULAR HEMOGLOBIN 30.2 pg (25.0-35.0); MEAN CORPUSCULAR HGB CONC 33.6 g/dl (31.0-37.0); MEAN PLATELET VOLUME 9.3 fl (7.0-11.0); RBC 4.94 10^6/uL (3.5-6.1); RED CELL DISTRIBUTION WIDTH 13.2 % (11.5-14.5); WHITE BLOOD COUNT 7.1 10^3/ul (4.5-11.0)
[2018-01-18 08:29] LABS: ALB/GLOB RATIO 1.3 (1.1-1.8); ALBUMIN 4.1 g/dL (3.0-4.8); ALT/SGPT 63 U/L (7-56); AST/SGOT 75 U/L (17-59); BLOOD UREA NITROGEN 10 mg/dL (7-21); CALCIUM 9.1 mg/dL (8.4-10.5); GFR NON-AFRICAN AMERICAN > 60
[2018-01-18] MEDS: Insulin Reg-MEDIUM-Coverage SC SCH ×4 (08:36→22:36)
--- NOTE | 2018-01-18 09:07 | PN ---
DATE: 01/18/2018 SUBJECTIVE: I saw him resting comfortably in bed. He slept well. He is doing fairly well. He is in the psychiatric floor for schizophrenia. He also has diabetes, high cholesterol, hypertension, high LFTs and low potassium. MEDICATIONS: He is currently on Ativan, folic acid, Glucophage, insulin, Klonopin, Lipitor, Maalox, milk of magnesia, perphenazine, Remeron, Thera-Tabs, Thorazine, TriCor, Tylenol and vitamin B1. PHYSICAL EXAMINATION: VITAL SIGNS: He has a 97.6 temp, 72 pulse, 111/71 blood pressure, 20 respiratory rate, 97% O2 sat on room air. HEENT: His head is atraumatic, normocephalic. HEART: Regular rate. LUNGS: Decreased breath sounds, but clear. ABDOMEN: Soft. EXTREMITIES: No edema. LABORATORY DATA: He has a 7.1 white count, 14.9 hemoglobin, 44.3 hematocrit with 169 platelets. He has 142 sodium, potassium 3.7, BUN 10, creatinine 0.8, GFR is greater than 60, sugar is 102, calcium is 9.1. His AST is 75, ALT is 63, alk phos 109, total protein 7.3. Urine is clean. Toxicology is clean. Serology, the RPR nonreactive. ASSESSMENT AND PLAN: Seen by Psychiatry. They did adjustment of medications. We will continue with aggressive treatment and care. I encouraged him to participate in groups, eat the food and hopefully slowly he will improve. Hopefully, he will improve and I will follow. Jose Johnson DO
[2018-01-18] MEDS: FLUVOXAMINE 50 MG PO SCH ×2 (09:10→16:35)
[2018-01-18] MEDS: FLUVOXAMINE 100 MG PO SCH ×2 (09:10→16:35)
[2018-01-18] MEDS: Multivitamin Therapeutic Tab PO SCH (09:10)
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
[2018-01-19 07:23] VITALS: BP 122/75; PULSE 67; TEMP 98
[2018-01-19] MEDS: FLUVOXAMINE 100 MG PO SCH (08:33)
[2018-01-19] MEDS: Multivitamin Therapeutic Tab PO SCH (08:33)
[2018-01-19] MEDS: FLUVOXAMINE 50 MG PO SCH (08:33)
[2018-01-19] MEDS: Insulin Reg-MEDIUM-Coverage SC SCH ×2 (08:34→12:17)
--- NOTE | 2018-01-19 12:23 | PN ---
DATE: 01/19/2018 SUBJECTIVE: He is here for schizophrenia, diabetes, high cholesterol, high LFTs and low potassium. He is doing better today. He slept well. He is eating breakfast well. He is getting out and walking around. He is on Ativan, folic acid, Glucophage, insulin, Klonopin, Lipitor, Maalox, milk of magnesia, perphenazine, Remeron, Thera-Tabs, Thorazine, TriCor, Tylenol, and vitamin B1. PHYSICAL EXAMINATION: VITAL SIGNS: He has 98 temp, 67 pulse, 122/75 blood pressure, 20 respiratory rate. HEENT: Head is atraumatic, normocephalic. HEART: Regular rate. LUNGS: Clear to auscultation. ABDOMEN: Soft. EXTREMITIES: No edema. LABORATORY DATA: He has a 7.1 white count, 14.9 hemoglobin, 44.3 hematocrit with 169 platelets. He has a 142 sodium, potassium 3.7, BUN 10, creatinine 0.8, GFR is greater than 60. Last blood sugar is 119. Total bili is 0.5, calcium is 9.1, AST is 75, ALT is 63, alk phos 109. Micro showed no growth. ASSESSMENT AND PLAN: He is actually fairly stable at this time. We are following him, watching adjustment in his psych medications. I think he is improving. His blood sugars are good. I encouraged him to drink more water and I encouraged him to participate. He tells me he is being discharged tomorrow. I will see him. We will follow. Jose Johnson DO
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
--- NOTE | 2018-01-21 00:21 | PN ---
DATE: 01/20/[address] Daly. This dictation is 1 day late due to mechanical difficulties. SUBJECTIVE: The patient is a 52-year-old male, well known to me, with a history of schizoaffective disorder. He has been hospitalized a number of times. He was admitted with thought broadcasting that started several days prior to admission. He however seemed to have reconsolidated with overt psychosis; the pattern noted previously. He had been maintained on 18 mg of Trilafon daily as per his psychiatrist, Dr. Kent. He appeared to be alert, oriented, well groomed, direct in focus in speech with no overt psychotic ideation. He indicated he was having some problems with thought projection and paranoia and felt that people was saying things around him that he was thinking. He had had this before (not presently). He had last been hospitalized 7 months ago. As per the patient's request, he was discharged with he could follow up the [facility]. He refused any services regarding his alcohol use. His discharge medications psychotropically were Klonopin 0.5 mg b.i.d. and Trilafon 8 mg at bedtime. He was also on antidiabetic medication and atorvastatin. Fabrizio Castro MD/ PhD
== END 2018-01-19 17:19 | disposition home or self-care (01) | DRG 885 ==
LOC: ED 20:20 → ERH 01-17 02:32 → PSYC 01-17 04:00
PROVIDERS: ADMIT Psychiatry & Neurology Psychiatry; ATTEND Psychiatry & Neurology Psychiatry
DX: F20.9 Schizophrenia, unspecified (principal); F17.210 Nicotine dependence, cigarettes, uncomplicated; E78.5 Hyperlipidemia, unspecified; E78.1 Pure hyperglyceridemia; E78.00 Pure hypercholesterolemia, unspecified; E11.9 Type 2 diabetes mellitus without complications; F41.9 Anxiety disorder, unspecified; F42.9 Obsessive-compulsive disorder, unspecified; G47.00 Insomnia, unspecified; I10 Essential (primary) hypertension; K21.9 Gastro-esophageal reflux disease without esophagitis; K76.0 Fatty (change of) liver, not elsewhere classified; E87.6 Hypokalemia; M19.90 Unspecified osteoarthritis, unspecified site

== ENCOUNTER 2018-01-27 19:17 | Inpatient (IN) | payer MEDICARE, OTHER ==
[2018-01-27 20:21] VITALS: BMI 27.1
[2018-01-27 22:30] LABS: BASO # 0.05 K/mm3 (0.0-2.0); BASO % 0.6 % (0.0-3.0); EOS # 0.1 (0.0-0.7); GRAN # 3.96 (1.4-6.5); GRAN % 49.8 % (50.0-68.0); HEMOGLOBIN 16.9 g/dL (14.0-18.0); LYMPH # 3.2 (1.2-3.4); LYMPH % 40.7 % (22.0-35.0); MEAN CORPUSCULAR HEMOGLOBIN 30.8 pg (25.0-35.0); MEAN CORPUSCULAR HGB CONC 35.8 g/dl (31.0-37.0); MEAN PLATELET VOLUME 8.9 fl (7.0-11.0); MONO # 0.6 (0.1-0.6); MONO % 7.9 % (1.0-6.0); RBC 5.49 10^6/uL (3.5-6.1); RED CELL DISTRIBUTION WIDTH 13.1 % (11.5-14.5)
[2018-01-27 22:38] LABS: ACETAMINOPHEN < 10.0 ug/ml (10.0-20.0); SALICYLATE < 1 mg/dL (2.0-20.0)
[2018-01-27 22:40] LABS: ALB/GLOB RATIO 1.3 (1.1-1.8); ALBUMIN 4.4 g/dL (3.0-4.8); ALT/SGPT 69 U/L (7-56); AST/SGOT 109 U/L (17-59); BLOOD UREA NITROGEN 14 mg/dL (7-21); CALCIUM 8.4 mg/dL (8.4-10.5); GFR NON-AFRICAN AMERICAN > 60
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
[2018-01-28 03:21] LABS: URINE BILIRUBIN NEGATIVE (NEGATIVE); URINE BLOOD TRACE-LYSED (NEGATIVE); URINE GLUCOSE (UA) NEGATIVE (NEGATIVE); URINE LEUKOCYTE ESTERASE NEGATIVE Leu/uL (NEGATIVE); URINE PROTEIN NEGATIVE mg/dL (<30 mg/dL); URINE UROBILINOGEN 0.2 E.U./dL (<1 E.U./dL)
[2018-01-28 03:23] LABS: URINE APPEARANCE CLEAR (CLEAR); URINE COLOR LIGHT YELLOW (YELLOW)
[2018-01-28 03:38] LABS: URINE RBC 0 - 2 /hpf (0-2); URINE WBC 0 - 2 /hpf (0-6)
[2018-01-28 03:39] LABS: URINE BACTERIA FEW (NEG)
[2018-01-28] MEDS ORDERED: Magnesium Hydroxide Susp 30 ml UD PO PRN (04:23)
[2018-01-28] MEDS ORDERED: Alum-Mag Hydrox-Simethicone Susp (30 mL) PO PRN (04:23)
[2018-01-28 04:29] VITALS: RESP 20
[2018-01-28 04:29] LABS: BARBITURATES, UR NEGATIVE (NEGATIVE); BENZODIAZEPINES, UR NEGATIVE (NEGATIVE); OPIATES, UR NEGATIVE (NEGATIVE); PHENCYCLIDINE, UR NEGATIVE (NEGATIVE)
--- NOTE | 2018-01-28 05:04 | PCM.BM ---
<Cindi Nolan - Last Filed: 01/28/18 05:02> Treatment Plan Problems - Problems identified on initial assessmt Auditory Hallucinations Date Initiated: 01/28/18 Time Initiated: 03:30 Assessment reference: NA Status: Active Priority: 1 Anxiety Related to Substance Abuse Date Initiated: 01/28/18 Time Initiated: 03:30 Assessment reference: NA Status: Active Priority: 2 Medication Nonadherence Date Initiated: 01/28/18 Time Initiated: 03:30 Assessment reference: NA Status: Active Priority: 3 Treatment assets and liabiliti Patient Assests: cooperative, self-reliant, ADL independent, negotiates basic needs Patient Liabilities: substance abuse, medical problems - Milieu Protocol Maintain good personal hygiene: daily Encourage regular showers, daily Remind patient to perform daily oral care Conduct patient checks and document Observation sheet: Q15 minutes Maintain personal safety: every shift Educate patient to report safety concerns to staff, every shift Monitor environment for contraband/sharps Medication safety: Monitor for expected outcome, potential side effects: every shift, Assess barriers to learning: every shift, Assess readiness for medication education: every shift Discharge/Continuing Care - Education Needs Education Needs: Patient Medication, Patient Diagnosis/Disease Process, Patient Coping Skills, Patient Community resources - Discharge Discharge Criteria: Tolerates medication w/o severe side effects, Free of paranoid thoughts, Normal sleep pattern <Shauna Daly - Last Filed: 01/28/18 07:13> - Diagnosis (1) Alcohol abuse Status: Acute Interventions: 01/28/18 07:13 Monitoring withdrawal symptoms Medical detoxification Pharmacotherapy for alcohol/benzos/opioid dependence Maintaining sobriety Relapse prevention Possible rehabilitation Motivational interviewing 12-step programs: AA meetings (2) Schizoaffective disorder Status: Acute Interventions: 01/28/18 07:13 Psychoeducation/psychotherapy Psychopharmacology/adjustment of medications as needed/ monitoring possible side effects Evaluate pt on daily basis Compliance with medications and follow up appointments Long acting medication if pt is noncompliant with pill form Suicide and homicide risk assessment and prevention, coping strategies, safety plan Relapse prevention Reduction of symptoms Improve functional status Possible assertive community treatment Cognitive behavioral therapy Family involvement Possible social skill training as outpatient <Camila Wang - Last Filed: 01/30/18 14:21>
[2018-01-28 08:34] LABS: GLUCOSE,FASTING 76 mg/dL (65-110); HDL CHOLESTEROL 41 mg/dL (29-60)
[2018-01-28 08:49] LABS: LDL CHOLESTEROL < 30 mg/dL (0-129)
[2018-01-28] MEDS: Multivitamin With Minerals Tab PO SCH (08:58)
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
--- NOTE | 2018-01-28 12:52 | CARD ---
APPROVED REPORT Date of service: 01/28/2018 EKG Measurement Heart [id number] <Conclusion> Sinus tachycardia LBBB Abnormal ECG
[2018-01-28 18:21] VITALS: O2SAT 96
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
[2018-01-29 08:22] LABS: HEMOGLOBIN 15.7 g/dL (14.0-18.0); MEAN CELL VOLUME 88.4 fl (80.0-105.0); MEAN CORPUSCULAR HEMOGLOBIN 29.8 pg (25.0-35.0); MEAN CORPUSCULAR HGB CONC 33.7 g/dl (31.0-37.0); MEAN PLATELET VOLUME 9.4 fl (7.0-11.0); RBC 5.27 10^6/uL (3.5-6.1); RED CELL DISTRIBUTION WIDTH 13.2 % (11.5-14.5); WHITE BLOOD COUNT 5.4 10^3/ul (4.5-11.0)
[2018-01-29 08:33] LABS: ALB/GLOB RATIO 1.1 (1.1-1.8); ALBUMIN 4.2 g/dL (3.0-4.8); ALT/SGPT 81 U/L (7-56); AST/SGOT 121 U/L (17-59); BLOOD UREA NITROGEN 12 mg/dL (7-21); CALCIUM 8.9 mg/dL (8.4-10.5); GFR NON-AFRICAN AMERICAN > 60
[2018-01-29] MEDS: Multivitamin With Minerals Tab PO SCH (09:21)
--- NOTE | 2018-01-29 12:00 | PCM.PYCHPN ---
Psychiatric Progress Note - Psychiatric Progress Note Patient seen today, length of contact: 30min Patient Chief Complaint: "I feel little better, if you will give me naltrexon will I get sick if I drink? " Problems Identified/Issues Discussed: Suicide/ homicide prevention, past psychiatric h/o, current psychiatric symptoms , medical problems, risk/benefits and alternatives of medications, medications compliance, coping strategies, substance abuse h/o, relapse prevention, importance of follow up with psychiatrist and therapist, discharge plan. Medical Problems: see HPI Diagnostic Results: 01/29/18 07:30 01/29/18 07:30 Lab Results 01/29/18 07:42: POC Glucose (mg/dL) 99 01/29/18 07:30: Sodium 143, Potassium 4.0, Chloride 109 H, Carbon Dioxide 25, Anion Gap 13, BUN 12, Creatinine 1.0, Est GFR ( Amer) > 60, Est GFR (Non- Af Amer) > 60, Random Glucose 110, Calcium 8.9, Total Bilirubin 1.1, AST 121 H, ALT 81 H, Alkaline Phosphatase 139 H, Total Protein 7.9, Albumin 4.2, Globulin 3.7, Albumin/Globulin Ratio 1.1 01/29/18 07:30: WBC 5.4 D, RBC 5.27, Hgb 15.7, Hct 46.6, MCV 88.4, MCH 29.8, MCHC 33.7, RDW 13.2, Plt Count 201, MPV 9.4 01/28/18 21:51: POC Glucose (mg/dL) 116 H 01/28/18 16:11: POC Glucose (mg/dL) 106 01/28/18 11:30: POC Glucose (mg/dL) 91 01/28/18 07:53: POC Glucose (mg/dL) 74 01/28/18 07:30: RPR Nonreactive 01/28/18 07:30: TSH 3rd Generation 1.37 01/28/18 07:30: Fasting Glucose 76, Triglycerides 402 H, Cholesterol 87 L, LDL Cholesterol Direct < 30, HDL Cholesterol 41 01/28/18 02:54: Urine Opiates Screen Negative, Urine Methadone Screen Negative, Ur Barbiturates Screen Negative, Ur Phencyclidine Scrn Negative, Ur Amphetamines Screen Negative, U Benzodiazepines Scrn Negative, U Oth Cocaine Metabols Negative, U Cannabinoids Screen Negative 01/28/18 02:54: Urine Color Light yellow, Urine Appearance Clear, Urine pH 6.0, Ur Specific [place] 1.015, Urine Protein Negative, Urine Glucose (UA) Negative, Urine Ketones Negative, Urine Blood Trace-lysed H, Urine Nitrate Negative, Urine Bilirubin Negative, Urine Urobilinogen 0.2, Ur Leukocyte Esterase Negative , Urine RBC 0 - 2, Urine WBC 0 - 2, Ur Epithelial Cells 1 - 3, Urine Bacteria Few 01/27/18 22:20: Alcohol, Quantitative 223 H 01/27/18 22:20: Salicylates < 1 L, Acetaminophen < 10.0 L 01/27/18 22:20: Sodium 140, Potassium 3.8, Chloride 106, Carbon Dioxide 22, Anion Gap 16, BUN 14, Creatinine 0.9, Est GFR ( Amer) > 60, Est GFR (Non- Af Amer) > 60, Random Glucose 87, Calcium 8.4, Magnesium 2.5 H, Total Bilirubin 0.6, AST 109 H D, ALT 69 H, Alkaline Phosphatase 128 H, Total Protein 7.9, Albumin 4.4, Globulin 3.5, Albumin/Globulin Ratio 1.3 01/27/18 22:20: WBC 8.0, RBC 5.49, Hgb 16.9 D, Hct 47.2, MCV 86.0 D, MCH 30.8 , MCHC 35.8, RDW 13.1, Plt Count 258, MPV 8.9, Gran % 49.8 L, Lymph % (Auto) 40.7 H, [place] % (Auto) 7.9 H, Eos % (Auto) 1.0 L, Baso % (Auto) 0.6, Gran # 3.96 , Lymph # (Auto) 3.2, [place] # (Auto) 0.6, Eos # (Auto) 0.1, Baso # (Auto) 0.05 Vital Signs Temp Pulse Resp BP Pulse Ox 01/29/18 06:55 97.6 F 72 20 124/80 01/28/18 13:54 98.4 F 95 H 20 124/82 96 01/28/18 07:00 98.1 F 101 H 20 127/82 01/28/18 03:35 98.2 F 108 H 20 139/87 99 01/28/18 03:30 97.8 F 109 H 17 128/85 96 01/28/18 02:39 97.8 F 109 H 17 128/85 96 01/27/18 20:27 98 F 110 H 16 131/85 97 DSM 5 Symptoms Update: Shortly pt is 52yo male with long h/o schizoaffective disorder, multiple psychiatric admissions in the past including [facility] and this facility more than five times, was discharged from this facility less than a week ago (pt was insisting and d/c pt), pt h/o being on clozaril, currently under care of [facility], as well as [facility], was admitted to the psychiatric inpatient unit for evaluation and stabilization of worsening of his psychosis, depression, possible alcohol withdrawals, inability to function and possible thoughts of harming self. Pt was seen at am next to the Nursing station, pt presented with poor personal hygiene, fair ADLs, guarded, intense eye contact. pt said that withdrawals "better", vitals are better controlled, mild tremor UE. pt was educated about Naltrexon, risk/benefits and alternatives discussed. pt was afraid that if he will relapse while taking naltrexone "will I get sick? ", seems not ready for quit drinking. will educate more. pt was open to that option after he got to know that he will not get sick. mood "still depressed", pt's girlfriend left him because pt was drinking. pt said "I will call her , may be she will come back". she tolerates medications well, no side effects observed or reported, aims 0, no EPS. Impression: Schizoaffective disorder Rule out OCD Alcohol use disorder Alcohol withdrawal symptoms which are much better Medication Change: Yes Medical Record Reviewed: Yes Consults ordered or reviewed: medical consult appreciated Mental Status Examination - Cognitive Function Orientation: Person, Place, Situation Memory: Intact Attention: Poor Concentration: Poor Association: Loose Fund of Knowledge: Poor - Affect Affect: Constricted, Flat - Formal Thought Process Formal Thought Process: Hallucinations ("just whispers"), Delusions, Paranoia, Loosening of associations - Suicidal Ideation Suicidal Ideation: No - Homicidal Ideation Homicidal Ideation: No Goal/Treatment Plan - Goal/Treatment Plan Need for Continued Stay: Remain at risks for inpatient hospitalization, Severe depression anxiety, Discharge may exacerbated symptoms, Severe functional impairment Progress Toward Problem(s) and Goals/Treatment Plan: Milieu/structure/supportive therapy Perphenazine 6 mg PO TID for psychosis fluvoxaMINE will be considered pt was on 150mg po daily for OCD and mood pt was started on MVI, thiamine, Folic acid VS will be checked q6hrs ativan 2mg po qid scheduled and PRN for alchol withdrawals the rest up to the medical team FS will be ordered insulin coverage medical consult was called SW consultation for discharge plan and social issues Family involvement Follow up on labs Will monitor closely Pt was educated about risk/benefits and alternatives of medications, coping strategies (safety plan, suicide prevention), relapse prevention, importance of follow up with psychiatrist and therapist, stay away from drugs/alcohol/smoking Estimated Date of D/C: 02/06/18
[2018-01-29] MEDS: Mupirocin 2% Ointment 15 GM TUBE TOP SCH (16:27)
--- NOTE | 2018-01-29 16:32 | PN ---
DATE: 01/29/2018 SUBJECTIVE: I saw him in his bed this morning. He is more alert and awake. The alcohol must be getting out of the system because he was in the hospital for alcohol abuse and anxiety. He had high LFTs, high triglycerides and now he is able to talk better. He is telling me that he has had abrasions in upper right back and lower part of the scalp. They are healing, but there are abrasion with them on some antibiotic cream. He is on Ativan, folic acid, Geodon, magnesium, milk of magnesia, Neurontin, perphenazine, Remeron, vitamins. PHYSICAL EXAMINATION: VITAL SIGNS: He has a 97.6 temperature, 72 pulse, 124/80 blood pressure, 20 respiratory rate, 96% O2 sat on room air. HEENT: Head: Atraumatic, normocephalic. On the back of his head, there is a little scrape healing. On his back, little bit of a scrape in the upper right back of his back, little scrape 4 cm x maybe half a centimeter and with looks like a scabbing healing. HEART: Regular rate. LUNGS: Clear to auscultation. ABDOMEN: Soft. EXTREMITIES: No edema. He is moving his bowels. He is eating okay. LABORATORY DATA: He has a 5.4 white count, 15.7 hemoglobin, 46.6 hematocrit with 201 platelets. He has a 143 sodium, potassium is 4, chloride is 109, BUN is 12, creatinine is 1, GFR is greater than 60, sugar is 99, they were 106 as high as 116, it was 110, calcium is 8.9, total bili is 1.1, AST is 121, ALT is 81, alk phos is 139, still a bit elevated. Total protein is 7.9. He did give in with a 223 alcohol level. RPR was nonreactive. I will add Bactroban cream for his abrasions. We will keep an eye on him. I do think mentally he is starting to clear up and mentally starting to feel better. He is eating. I will watch him. Alvarez Pillai who has an alcohol level of 200 and greater, high LFTs, still persisting a little bit. I will decrease the Accu-Chek and I will get labs tomorrow. Jose Johnson DO
[2018-01-30 07:12] VITALS: BP 122/76; PULSE 78; TEMP 98.3
[2018-01-30 08:11] LABS: HEMOGLOBIN 15.5 g/dL (14.0-18.0); MEAN CELL VOLUME 88.3 fl (80.0-105.0); MEAN CORPUSCULAR HEMOGLOBIN 30.2 pg (25.0-35.0); MEAN CORPUSCULAR HGB CONC 34.1 g/dl (31.0-37.0); MEAN PLATELET VOLUME 9.7 fl (7.0-11.0); RBC 5.14 10^6/uL (3.5-6.1); RED CELL DISTRIBUTION WIDTH 12.9 % (11.5-14.5)
[2018-01-30] MEDS: Multivitamin With Minerals Tab PO SCH (08:19)
[2018-01-30] MEDS: Mupirocin 2% Ointment 15 GM TUBE TOP SCH (08:19)
[2018-01-30 08:29] LABS: ALB/GLOB RATIO 1.2 (1.1-1.8); ALBUMIN 4.5 g/dL (3.0-4.8); ALT/SGPT 83 U/L (7-56); AST/SGOT 100 U/L (17-59); BLOOD UREA NITROGEN 13 mg/dL (7-21); CALCIUM 9.2 mg/dL (8.4-10.5); GFR NON-AFRICAN AMERICAN > 60
--- NOTE | 2018-01-30 12:46 | PN ---
DATE: 01/30/2018 SUBJECTIVE: He is in the psychiatric floor. He is finally up and out of bed. He is walking around. He is feeling much better. He is on Ativan, Bactroban cream, folic acid, Geodon, Maalox, milk of magnesia, Neurontin, perphenazine, Remeron therapeutic tablets, Tylenol and vitamin B1. OBJECTIVE: VITAL SIGNS: He has a 98.3 temperature, 78 pulse, 122/76 blood pressure, 20 respiratory rate, 96% O2 sat on room air. HEENT: His head is atraumatic, normocephalic. HEART: Regular rate. LUNGS: Clear to auscultation. ABDOMEN: Soft. EXTREMITIES: No edema. DATA: He has a 6 white count, 15.5 hemoglobin, 45.4 hematocrit with 189 platelets. Sodium 138, potassium 3.9, BUN 13, creatinine 0.9. GFR is greater than 60, sugar is 116, calcium is 9.2, total bili is 0.8, AST is 100, ALT is 83, alk phos is 129 and total protein is 8.4. Liver enzymes are still a little bit elevated. I am going to call in GI for their opinion, do an ultrasound of his liver. Jose Johnson DO
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
== END 2018-01-30 15:46 | disposition left against medical advice (07) | DRG 885 ==
LOC: ED 19:17 → ERH 01-28 02:32 → PSYC 01-28 03:26
PROVIDERS: ADMIT Psychiatry & Neurology Psychiatry; ATTEND Psychiatry & Neurology Psychiatry
DX: F25.9 Schizoaffective disorder, unspecified (principal); F10.239 Alcohol dependence with withdrawal, unspecified; F10.229 Alcohol dependence with intoxication, unspecified; Y90.7 Blood alcohol level of 200-239 mg/100 ml; E11.9 Type 2 diabetes mellitus without complications; F32.9 Major depressive disorder, single episode, unspecified; I10 Essential (primary) hypertension; F42.9 Obsessive-compulsive disorder, unspecified; K21.9 Gastro-esophageal reflux disease without esophagitis; E78.5 Hyperlipidemia, unspecified; F17.210 Nicotine dependence, cigarettes, uncomplicated; K76.0 Fatty (change of) liver, not elsewhere classified; Z79.84 Long term (current) use of oral hypoglycemic drugs

== ENCOUNTER 2018-07-05 21:45 | Observation (INO) | payer MEDICARE ==
[2018-07-05] MEDS ORDERED: TDAP Vaccine 0.5 mL Syr IM ONE (22:08)
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
[2018-07-05 22:10] VITALS: BMI 27.4
[2018-07-05 23:26] LABS: ALB/GLOB RATIO 1.2 (1.1-1.8); ALBUMIN 4.8 g/dL (3.0-4.8); ALT/SGPT 91 U/L (7-56); AST/SGOT 121 U/L (17-59); BLOOD UREA NITROGEN 12 mg/dL (7-21); CALCIUM 9.9 mg/dL (8.4-10.5); GFR NON-AFRICAN AMERICAN > 60
[2018-07-05 23:28] LABS: URINE BILIRUBIN NEGATIVE (NEGATIVE); URINE BLOOD NEGATIVE (NEGATIVE); URINE GLUCOSE (UA) NEGATIVE (NEGATIVE); URINE LEUKOCYTE ESTERASE NEGATIVE Leu/uL (NEGATIVE); URINE PROTEIN NEGATIVE mg/dL (<30 mg/dL); URINE UROBILINOGEN 0.2 E.U./dL (<1 E.U./dL)
[2018-07-05 23:29] LABS: BASO # 0.03 K/mm3 (0.0-2.0); BASO % 0.4 % (0.0-3.0); EOS % 0.4 % (1.5-5.0); HEMOGLOBIN 14.8 g/dL (14.0-18.0); LYMPH # 1.7 (1.2-3.4); LYMPH % 19.7 % (22.0-35.0); MEAN CELL VOLUME 89.7 fl (80.0-105.0); MEAN CORPUSCULAR HGB CONC 33.5 g/dl (31.0-37.0); MEAN PLATELET VOLUME 10.5 fl (7.0-11.0); MONO # 0.5 (0.1-0.6); MONO % 5.9 % (1.0-6.0); RBC 4.93 10^6/uL (3.5-6.1); RED CELL DISTRIBUTION WIDTH 13.1 % (11.5-14.5); WHITE BLOOD COUNT 8.4 10^3/uL (4.5-11.0)
[2018-07-05 23:34] LABS: URINE APPEARANCE CLEAR (CLEAR); URINE COLOR COLORLESS (YELLOW)
[2018-07-05 23:53] LABS: BARBITURATES, UR NEGATIVE (NEGATIVE); BENZODIAZEPINES, UR NEGATIVE (NEGATIVE); OPIATES, UR NEGATIVE (NEGATIVE); PHENCYCLIDINE, UR NEGATIVE (NEGATIVE); TROPONIN I < 0.01 ng/mL
--- NOTE | 2018-07-06 04:22 | CP.PCM.PN ---
Subjective - Date & Time of Evaluation Date of Evaluation: 07/06/18 Time of Evaluation: 04:21 - Subjective Subjective: TBD code morales. agitation. Rx, Klonopin 1 mg PO x 1. Objective - Vital Signs/Intake and Output Vital Signs (last 24 hours): Temp Pulse Resp BP Pulse Ox 98.5 F 74 20 147/84 98 07/06/18 02:00 07/06/18 02:00 07/06/18 02:00 07/06/18 02:00 07/06/18 02:00 - Labs Labs: 07/05/18 23:06 07/05/18 23:06
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
--- NOTE | 2018-07-06 09:18 | CARD ---
APPROVED REPORT Date of service: 07/05/2018 EKG Measurement Heart [id number] <Conclusion> Normal sinus rhythm Minimal voltage criteria for LVH, may be normal variant Anterior infarct, age undetermined T wave abnormality, consider lateral ischemia Abnormal ECG
--- NOTE | 2018-07-06 11:23 | CON ---
DATE OF CONSULTATION: 07/06/2018 CARDIOLOGY CONSULTATION HISTORY: The patient is a 53-year-old male, who presents with paranoia. He has been admitted to the psych serna; however, his routine EKG showed changes with new ST and T-wave inversions in the anterior leads. Compared to his previous EKG, all revealed left bundle-branch block. The patient denies chest pain, denies shortness of breath. No previous cardiac history is noted. The patient's cardiac risk factors include smoking as well as diabetes mellitus and hypercholesterolemia. SOCIAL HISTORY: The patient is an active smoker. REVIEW OF SYSTEMS: Review of systems were all free of cardiac symptoms. PHYSICAL EXAMINATION: VITAL SIGNS: Blood pressure is 103/73, the heart rate is in the 70s. NECK: Negative JVD. LUNGS: Without rales. CARDIAC: Heart rate S1, S2. EXTREMITIES: Without edema. LABORATORY DATA: EKG shows new T-wave inversions, which may have been hidden by his previous left bundle-branch block, which may be rate related. Troponin is negative x1. His glucose is 116, hemoglobin is 14.8. IMPRESSION: 1. Paranoia. 2. Abnormal EKG with T-wave inversions. 3. No previous cardiac history is notable. 4. Diabetes mellitus. 5. Hypercholesterolemia. 6. Active smoker. PLAN: Given these findings, we will obtain an echocardiogram to review LV function. We will obtain a second troponin. If these are all negative, the patient can go back to the psych serna to continue his care. His abnormal EKG may be rate related with a bundle-branch block in the past hiding these EKG changes. Eliot Dalton MD
--- NOTE | 2018-07-06 11:28 | CP.PCM.APN ---
Subjective - Date & Time of Evaluation Date of Evaluation: 07/06/18 Time of Evaluation: 11:00 - Subjective Subjective: Pt seen and examined at bedside. Currently denying any visual or auditory hallucinations. Denies any thoughts of hurting himself or others. No chest pain or shortness of breath. Pt is s/p code morales early this morning 2/2 agitation. Objective - Vital Signs/Intake and Output Vital Signs (last 24 hours): Temp Pulse Resp BP Pulse Ox 98.2 F 100 H 20 103/73 96 07/06/18 08:22 07/06/18 08:22 07/06/18 08:22 07/06/18 08:22 07/06/18 08:22 - Medications Medications: Current Medications Clonazepam (Klonopin) 0.5 mg PO TID [facility]; Protocol Last Admin: 07/06/18 10:37 Dose: 0.5 mg Sitagliptin Phosphate (Januvia) 50 mg PO DAILY [facility] Last Admin: 07/06/18 10:37 Dose: 50 mg - Labs Labs: 07/05/18 23:06 07/05/18 23:06 - Constitutional Appears: No Acute Distress - Eye Exam Additional comments: +bruising L periorbital - Respiratory Exam Respiratory Exam: NORMAL BREATHING PATTERN - Cardiovascular Exam Cardiovascular Exam: REGULAR RHYTHM, +S1, +S2 - Neurological Exam Neurological Exam: Alert, Awake, Normal Gait Assessment and Plan - Assessment and Plan (Free Text) Assessment: pt is a 53 y.o. male w/ pmhx of paranoid schizophrenia who presented in ED w/ c/o auditory hallucinations, patient states that for the past few weeks he has been hearing voices outside of his house threatening to hurt him. He also states that he is seeing people outside of his house who have threatened to hurt him. In ED, pt was found to have inverted T wakes in EKG w/c was new. Impressions Head CT 07/05/18 22:00 IMPRESSION: Very limited diffuse cerebral atrophy. Pattern appears age appropriate. No intracranial hemorrhage, mass effect or parenchymal edema identified. No fracture or destructive bony lesion appreciable throughout the calvarium or the skull base. Discordant preliminary report from [facility] 07/05/2018 1:34 a.m.. I see no intracranial hemorrhage whatsoever throughout this exam. Preliminary report discusses "tiny linear hyperdensity in the left frontal region... tiny intra cerebral contusion." Orbit CT 07/05/18 22:04 IMPRESSION: Nonacute non contrast enhanced CT of the maxillofacial bones. Concordant preliminary report from [facility], 07/06/2018 1:22 a.m.. Ribs X-Ray 07/05/18 22:04 IMPRESSION: Unremarkable radiographs of the chest and right ribs. No right rib fracture. Plan: Pending ECHO Cardio and Psych on consult Meds per MAR Will continue to follow
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
[2018-07-06 19:20] VITALS: BP 114/77; PULSE 94; RESP 18; TEMP 98; O2SAT 95
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
[2018-07-06] MEDS ORDERED: PERPHENAZINE 8 MG PO SCH (22:00)
--- NOTE | 2018-07-07 00:09 | CON ---
DATE: 07/06/2018 HISTORY OF PRESENT ILLNESS: The patient is a 53-year-old white male, well-known to me over the years, with an intercurrent psychiatric disorder compatible with a schizoaffective disorder or a paranoid schizophrenic disorder. He also has a history of alcohol abuse. He had initially been seen by Dr. Daly who offered the patient hospitalization, but he refused, exhibiting much denial and poor insight of the nature of his present mental state which consists of paranoia of a delusional intensity. He had also requested that I see him (and with the hope as expressed in my discussion with Dr. Daly) that my availability to him would lead to his voluntary hospitalization on . Unfortunately, this was only wishful thinking as the patient is refusing hospitalization, feels there is nothing the matter with him, that he can go home with safety. Yet at the same time, the patient speaks of a traumatic episode of the past day or so (as clearly delineated by Dr. Daly) in her consultation. To me, he on one hand indicates there is nothing the matter with him, on the other hand he speaks of people being after him, people knocking outside his door and being agitated. I have discussed the situation also with nursing. Because of the patient's refusal to voluntarily admit himself for further observation and stabilization, an attempt is being made presently to have the patient undergo involuntary commitment proceedings. He has been maintained here on Klonopin 0.5 mg t.i.d., Remeron 15 mg h.s., perphenazine was given stat (8 mg), and ziprasidone was also given 20 mg IM stat. The patient's vital signs show an elevated pulse rate of 94 with normotensive blood pressure 114/77, temperature 98, respiratory rate 18. CBC and differential was within normal limits. A urine toxicology screen was negative. Urinalysis negative. I had previously interacted with this patient in 05/2017 with he subsequently having been admitted psychiatrically this past January on two successive occasions. If the patient is not yet committed until tomorrow, I will reevaluate him to further encourage him to consent to needed psychiatric care. Fabrizio Castro MD/ PhD [facility] # [id number]
--- NOTE | 2018-07-07 08:47 | CP.PCM.PCO ---
Physician Communication Note - Physician Communication Note Physician Communication Note: pt was transferred to [facility] for involuntary committment screening.
--- NOTE | 2018-07-10 12:49 | CARD ---
APPROVED REPORT Date of service: 07/06/2018 EXAM: Two-dimensional and M-mode echocardiogram with Doppler and color Doppler. INDICATION Abnormal EKG/Arrhythmia 2D DIMENSIONS Left Atrium (2D)3.3 (1.6-4.0cm)IVSd1.2 (0.7-1.1cm) LVDd4.3 (3.9-5.9cm)PWd0.9 (0.7-1.1cm) LVDs3.1 (2.5-4.0cm)FS (%) 26.6 % LVEF (%)52.4 (>50%) M-Mode DIMENSIONS Aortic Root2.70 (2.2-3.7cm)Aortic Cusp Exc.1.70 (1.5-2.0cm) Aortic Valve AoV Peak Xwimcdzb966.0cm/Lenora Peak GR.8mmHg Mitral Valve MV E Ntnikhey78.8cm/sMV A Iwysaxgb19.1cm/sE/A ratio0.8 TDI E/Lateral E'0.0E/Medial E'0.0 Tricuspid Valve TR Peak Vsumwutf66vy/sRAP [id number] Peak Gr.4mmHg [id number] LEFT VENTRICLE There is mild concentric left ventricular hypertrophy. The left ventricular function is normal. The left ventricular ejection fraction is within the normal range. RIGHT VENTRICLE The right ventricle is normal size. ATRIA The left atrium is mildly dilated. The right atrium size is normal. AORTIC VALVE The aortic valve is thickened but opens well. MITRAL VALVE The mitral valve is thickened but opens well. TRICUSPID VALVE The tricuspid valve leaflets are thickened , but open well. There is trace to mild tricuspid regurgitation. There is no pulmonary hypertension. PULMONIC VALVE The pulmonic valve is mildly thickened. PERICARDIAL EFFUSION There is no pericardial effusion. <Conclusion> LVH with good LV function Mildly dilated LA Mild TR No pulmonary hypertension
== END 2018-07-07 01:20 ==
LOC: ED 21:45 → INTOOBSV 07-06 00:16 → ERH 07-06 00:16 → 3RNO 07-06 01:30
PROVIDERS: ADMIT Family Medicine; ATTEND Family Medicine
DX: F20.0 Paranoid schizophrenia (principal); R94.31 Abnormal electrocardiogram [ECG] [EKG]; E11.9 Type 2 diabetes mellitus without complications; E78.00 Pure hypercholesterolemia, unspecified; I10 Essential (primary) hypertension; F17.210 Nicotine dependence, cigarettes, uncomplicated; K21.9 Gastro-esophageal reflux disease without esophagitis; S00.83XA Contusion of other part of head, initial encounter; Y04.0XXA Assault by unarmed brawl or fight, initial encounter; Z79.84 Long term (current) use of oral hypoglycemic drugs; Z81.8 Family history of other mental and behavioral disorders
CPT/HCPCS: 36415; 70450; 70480; 71101; 80053; 81003; 82550; 82948; 83615; 83735; 84484; 85025; 90471; 90715; 90791; 93005; 93306; 96372; 99285; G0378; G0480; J2060; J3486

== ENCOUNTER 2018-09-04 17:55 | Emergency (ER) | payer MEDICARE ==
[2018-09-04 17:56] VITALS: BMI 27.1
== END 2018-09-04 18:45 | disposition left against medical advice (07) ==
LOC: ED 17:55
DX: Z02.89 Encounter for other administrative examinations (principal); F10.10 Alcohol abuse, uncomplicated

== ENCOUNTER 2018-09-08 04:07 | Emergency (ER) | payer MEDICARE ==
[2018-09-08 04:12] VITALS: BMI 26.2
[2018-09-08] MEDS ORDERED: TDAP Vaccine 0.5 mL Syr IM ONE (04:26)
[2018-09-08 05:05] LABS: BASO # 0.03 K/mm3 (0.0-2.0); BASO % 0.6 % (0.0-3.0); EOS # 0.2 (0.0-0.7); EOS % 4.2 % (1.5-5.0); HEMOGLOBIN 15.3 g/dL (14.0-18.0); LYMPH % 38.2 % (22.0-35.0); MEAN CELL VOLUME 90.7 fl (80.0-105.0); MEAN CORPUSCULAR HEMOGLOBIN 30.3 pg (25.0-35.0); MEAN CORPUSCULAR HGB CONC 33.4 g/dl (31.0-37.0); MEAN PLATELET VOLUME 9.9 fl (7.0-11.0); MONO # 0.4 (0.1-0.6); MONO % 8.1 % (1.0-6.0); RBC 5.05 10^6/uL (3.5-6.1); RED CELL DISTRIBUTION WIDTH 13.2 % (11.5-14.5); WHITE BLOOD COUNT 5.2 10^3/uL (4.5-11.0)
[2018-09-08 05:11] LABS: ACETAMINOPHEN < 10.0 ug/ml (10.0-20.0); SALICYLATE < 1 mg/dL (2.0-20.0)
[2018-09-08 05:12] LABS: ALB/GLOB RATIO 1.2 (1.1-1.8)
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
[2018-09-08 06:03] LABS: URINE BILIRUBIN NEGATIVE (NEGATIVE); URINE BLOOD TRACE-LYSED (NEGATIVE); URINE GLUCOSE (UA) NEGATIVE (NEGATIVE); URINE LEUKOCYTE ESTERASE NEGATIVE Leu/uL (NEGATIVE); URINE PROTEIN 30 mg/dL (<30 mg/dL); URINE UROBILINOGEN 0.2 E.U./dL (<1 E.U./dL)
[2018-09-08 06:07] LABS: URINE APPEARANCE CLEAR (CLEAR); URINE COLOR STRAW (YELLOW)
[2018-09-08 06:10] LABS: URINE BACTERIA OCC /hpf; URINE RBC 0 - 2 /hpf (0-2); URINE WBC 0 - 2 /hpf (0-6)
[2018-09-08 06:13] LABS: BARBITURATES, UR NEGATIVE (NEGATIVE); BENZODIAZEPINES, UR POSITIVE (NEGATIVE); OPIATES, UR NEGATIVE (NEGATIVE); PHENCYCLIDINE, UR NEGATIVE (NEGATIVE)
[2018-09-08 06:13] LABS: ALBUMIN 4.4 g/dL (3.0-4.8); ALT/SGPT 33 U/L (7-56); AST/SGOT 52 U/L (17-59); BLOOD UREA NITROGEN 8 mg/dL (7-21); CALCIUM 9.7 mg/dL (8.4-10.5); GFR NON-AFRICAN AMERICAN > 60
[2018-09-08 06:28] VITALS: TEMP 98.5
--- NOTE | 2018-09-08 07:20 | ED PDOC ---
Physical Exam Vital Signs Temp Pulse Resp BP Pulse Ox 09/08/18 06:21 71 13 140/77 98 09/08/18 04:16 98.5 F 78 14 135/78 100 Medical Decision Making ED Course and Treatment: 09/08/18 07:20 Patient signed out to me by Dr. Abreu, pending PES evaluation. 09/08/18 08:01 patient seen by PES. patient cleared for discharge. patient does not appear to be an acute threat to himself or others. patient can be discharged with outpt follow up. dx: substance induced mood disorder. - Lab Interpretations Lab Results: Total Bilirubin 0.2 mg/dL (0.2-1.3) 09/08/18 04:21 AST 52 U/L (17-59) 09/08/18 04:21 ALT 33 U/L (7-56) 09/08/18 04:21 Alkaline Phosphatase 132 U/L (38-126) H 09/08/18 04:21 Total Protein 8.1 g/dL (5.8-8.3) 09/08/18 04:21 Albumin 4.4 g/dL (3.0-4.8) 09/08/18 04:21 Globulin 3.7 gm/dL 09/08/18 04:21 Albumin/Globulin Ratio 1.2 (1.1-1.8) 09/08/18 04:21 Urine Color Straw (YELLOW) 09/08/18 05:12 Urine Appearance Clear (CLEAR) 09/08/18 05:12 Urine pH 6.0 (4.7-8.0) 09/08/18 05:12 Ur Specific [place] 1.015 (1.005-1.035) 09/08/18 05:12 Urine Protein 30 mg/dL (<30 mg/dL) H 09/08/18 05:12 Urine Glucose (UA) Negative mg/dL (NEGATIVE) 09/08/18 05:12 Urine Ketones Negative mg/dL (NEGATIVE) 09/08/18 05:12 Urine Blood Trace-lysed (NEGATIVE) H 09/08/18 05:12 Urine Nitrate Negative (NEGATIVE) 09/08/18 05:12 Urine Bilirubin Negative (NEGATIVE) 09/08/18 05:12 Urine Urobilinogen 0.2 E.U./dL (<1 E.U./dL) 09/08/18 05:12 Ur Leukocyte Esterase Negative Liv/uL (NEGATIVE) 09/08/18 05:12 Urine RBC 0 - 2 /hpf (0-2) 09/08/18 05:12 Urine WBC 0 - 2 /hpf (0-6) 09/08/18 05:12 Ur Epithelial Cells 1 - 3 /hpf (0-5) 09/08/18 05:12 Urine Bacteria Occ /hpf (NONE) 09/08/18 05:12 Hyaline Casts 1-3 /hpf (NONE) 09/08/18 05:12 - RAD Interpretation Radiology Orders: 09/08/18 04:26 CHEST PORTABLE [RAD] Stat - Medication Orders Current Medication Orders: Discontinued Medications Tetanus/Reduced Diphtheria/Acell Pertussis (Boostrix Vaccine Inj) 0.5 ml IM .ONCE ONE Stop: 09/08/18 04:27 Last Admin: 09/08/18 05:06 Dose: Not Given Non-Admin Reason: Patient Refused Immunization Registry Document 09/08/18 05:06 BRIDGETT (Rec: 09/08/18 05:07 [id number]) [facility]-Date provided 07/05/18 - Scribe Statement The provider has reviewed the documentation as recorded by the Ana Rosaibdenise Gould All medical record entries made by the Ana Rosaibdenise were at my direction and personally dictated by me. I have reviewed the chart and agree that the record accurately reflects my personal performance of the history, physical exam, medical decision making, and the department course for this patient. I have also personally directed, reviewed, and agree with the discharge instructions and disposition. Disposition/Present on Arrival - Present on Arrival Any Indicators Present on Arrival: No History of DVT/PE: No History of Uncontrolled Diabetes: No Urinary Catheter: No History of Decub. Ulcer: No History Surgical Site Infection Following: None - Disposition Have Diagnosis and Disposition been Completed?: Yes Diagnosis: Substance induced mood disorder Disposition: HOME/ ROUTINE Disposition Time: 08:02 Patient Plan: Discharge Condition: STABLE Additional Instructions: PATIENT IS MEDICALLY AND PSYCHIATRICALLY CLEARED FOR INCARCERATION. Forms: [employer] (Uzbek)
[2018-09-08 08:08] VITALS: BP 145/76; PULSE 70; RESP 18; O2SAT 99
--- NOTE | 2018-09-08 08:28 | RAD ---
HISTORY: schizophrenia COMPARISON: Chest x-ray performed 07/05/18 TECHNIQUE: Chest, one view. FINDINGS: LUNGS: No focal consolidation. Please note that chest x-ray has limited sensitivity for the detection of pulmonary masses. PLEURA: No significant pleural effusion identified. No definite pneumothorax . CARDIOVASCULAR: The cardiomediastinal silhouette appears within normal limits of size. No significant atherosclerotic calcification present. OSSEOUS STRUCTURES: Acromioclavicular arthropathy. Degenerative changes of the spine. VISUALIZED UPPER ABDOMEN: Unremarkable. OTHER FINDINGS: None. IMPRESSION: No acute findings.
--- NOTE | 2018-09-08 09:35 | CARD ---
APPROVED REPORT Date of service: 09/08/2018 EKG Measurement Heart [id number] <Conclusion> Normal sinus rhythm Possible Left atrial enlargement Left bundle branch block Abnormal ECG
== END 2018-09-08 08:09 | disposition home or self-care (01) ==
LOC: ED 04:07
DX: F20.9 Schizophrenia, unspecified (principal); F19.94 Other psychoactive substance use, unspecified with psychoactive substance-induced mood disorder; E11.9 Type 2 diabetes mellitus without complications; F17.210 Nicotine dependence, cigarettes, uncomplicated; I10 Essential (primary) hypertension
CPT/HCPCS: 71045; 80053; 81001; 85025; 93005; 99283; G0480

== ENCOUNTER 2018-09-20 18:32 | Emergency (ER) | payer MEDICARE ==
[2018-09-20 18:43] VITALS: BMI 20.3
[2018-09-20] MEDS ORDERED: DiphenhydrAMINE 50 mg/ml Inj IVP STA (19:05)
[2018-09-20] MEDS ORDERED: DiphenhydrAMINE 50 mg/ml Inj IM STA (19:05)
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
[2018-09-20 19:54] LABS: BASO # 0.04 K/mm3 (0.0-2.0); BASO % 0.5 % (0.0-3.0); EOS # 0.2 (0.0-0.7); EOS % 2.9 % (1.5-5.0); LYMPH # 2.5 (1.2-3.4); LYMPH % 29.5 % (22.0-35.0); MEAN CELL VOLUME 89.9 fl (80.0-105.0); MEAN CORPUSCULAR HEMOGLOBIN 30.4 pg (25.0-35.0); MEAN CORPUSCULAR HGB CONC 33.9 g/dl (31.0-37.0); MEAN PLATELET VOLUME 9.1 fl (7.0-11.0); MONO # 0.4 (0.1-0.6); MONO % 4.8 % (1.0-6.0); RBC 4.93 10^6/uL (3.5-6.1); RED CELL DISTRIBUTION WIDTH 13.2 % (11.5-14.5); WHITE BLOOD COUNT 8.4 10^3/uL (4.5-11.0)
[2018-09-20 20:02] LABS: ACETAMINOPHEN < 10.0 ug/ml (10.0-20.0); SALICYLATE < 1 mg/dL (2.0-20.0)
[2018-09-20 20:08] LABS: ALB/GLOB RATIO 1.2 (1.1-1.8); ALBUMIN 4.3 g/dL (3.0-4.8); ALT/SGPT 43 U/L (7-56); AST/SGOT 75 U/L (17-59); BLOOD UREA NITROGEN 11 mg/dL (7-21); CALCIUM 8.7 mg/dL (8.4-10.5); GFR NON-AFRICAN AMERICAN > 60
--- NOTE | 2018-09-20 21:32 | ED PDOC ---
Physical Exam Vital Signs Temp Pulse Resp BP Pulse Ox 09/20/18 19:55 98 H 18 102/66 97 09/20/18 18:44 98.0 F 143 H 29 H 162/110 H 98 Medical Decision Making ED Course and Treatment: 09/20/18 20:30 Case endorsed to me by Dr. Clark, pending labs, xray, and psych evaluation. - Lab Interpretations Lab Results: Total Bilirubin 0.3 mg/dL (0.2-1.3) 09/20/18 19:40 AST 75 U/L (17-59) H D 09/20/18 19:40 ALT 43 U/L (7-56) 09/20/18 19:40 Alkaline Phosphatase 143 U/L (38-126) H 09/20/18 19:40 Total Protein 8.0 g/dL (5.8-8.3) 09/20/18 19:40 Albumin 4.3 g/dL (3.0-4.8) 09/20/18 19:40 Globulin 3.7 gm/dL 09/20/18 19:40 Albumin/Globulin Ratio 1.2 (1.1-1.8) 09/20/18 19:40 - RAD Interpretation Radiology Orders: 09/20/18 18:53 CHEST PORTABLE [RAD] Stat - Medication Orders Current Medication Orders: Discontinued Medications Diphenhydramine HCl (Benadryl) 50 mg IM STAT STA Stop: 09/20/18 19:06 Last Admin: 09/20/18 19:16 Dose: 50 mg IM Administration Charges Document 09/20/18 19:16 [email or web address] (Rec: 09/20/18 19:16 [email or web address] [id number]) Injection Site MAR Injection Site Left Deltoid Charges for Administration # of IM Administrations 1 Haloperidol Lactate (Haldol) 5 mg IM STAT STA; Protocol Stop: 09/20/18 18:53 Last Admin: 09/20/18 18:50 Dose: 5 mg IM Administration Charges Document 09/20/18 18:50 [email or web address] (Rec: 09/20/18 19:15 [email or web address] [id number]) Injection Site MAR Injection Site Left Deltoid Charges for Administration # of IM Administrations 1 Lorazepam (Ativan) 2 mg IM ONCE ONE; Protocol Stop: 09/20/18 18:53 Last Admin: 09/20/18 18:50 Dose: 2 mg IM Administration Charges Document 09/20/18 18:50 [email or web address] (Rec: 09/20/18 19:15 [email or web address] [id number]) Injection Site MAR Injection Site Right Deltoid Charges for Administration # of IM Administrations 1 Ziprasidone (Geodon Inj) 10 mg IM STAT STA; Protocol Stop: 09/20/18 21:27 Last Admin: 09/20/18 21:28 Dose: 10 mg IM Administration Charges Document 09/20/18 21:28 CNR (Rec: 09/20/18 21:29 CNR [id number]) Injection Site MAR Injection Site Left Deltoid Charges for Administration # of IM Administrations 1 - Transfer of Care Patient signed out to Dr:: [facility] [place] transfer Disposition/Present on Arrival - Present on Arrival Any Indicators Present on Arrival: No History of DVT/PE: No History of Uncontrolled Diabetes: No Urinary Catheter: No History of Decub. Ulcer: No History Surgical Site Infection Following: None - Disposition Have Diagnosis and Disposition been Completed?: Yes Diagnosis: Suicidal behavior [place]position[place] [facility] [place] Time: 07:00 Condition: FAIR Forms: [employer] (Zambian)
[2018-09-20 23:30] LABS: URINE BILIRUBIN NEGATIVE (NEGATIVE); URINE BLOOD SMALL (NEGATIVE); URINE GLUCOSE (UA) NEGATIVE (NEGATIVE); URINE LEUKOCYTE ESTERASE NEGATIVE Leu/uL (NEGATIVE); URINE PROTEIN NEGATIVE mg/dL (<30 mg/dL); URINE UROBILINOGEN 0.2 E.U./dL (<1 E.U./dL)
[2018-09-20 23:32] LABS: URINE APPEARANCE CLEAR (CLEAR); URINE COLOR YELLOW (YELLOW)
[2018-09-20 23:56] LABS: BARBITURATES, UR NEGATIVE (NEGATIVE); BENZODIAZEPINES, UR POSITIVE (NEGATIVE); OPIATES, UR NEGATIVE (NEGATIVE); PHENCYCLIDINE, UR NEGATIVE (NEGATIVE)
[2018-09-21 00:06] LABS: URINE FINE GRANULAR CAST 0 - 2 /hpf; URINE HYALINE CAST 0 - 2 /hpf; URINE RBC 0 - 2 /hpf (0-2); URINE WBC 0 - 2 /hpf (0-6)
[2018-09-21 00:07] LABS: URINE EPITHELIAL CELLS 0 - 2 /hpf (0-5)
[2018-09-21 06:46] VITALS: TEMP 98.2
--- NOTE | 2018-09-21 07:05 | ED PDOC ---
Physical Exam Vital Signs Temp Pulse Resp BP Pulse Ox 09/21/18 06:44 98.2 F 96 H 13 128/75 97 09/21/18 04:20 101 H 13 108/64 96 09/21/18 03:04 98 H 13 123/82 97 09/20/18 21:38 126 H 24 148/89 93 L 09/20/18 19:55 98 H 18 102/66 97 09/20/18 18:44 98.0 F 143 H 29 H 162/110 H 98 Medical Decision Making ED Course and Treatment: 09/21/18 07:02 Case endorsed to me by Dr. Lee. Awaiting [facility] screening 09/21/18 08:07 Accepted admission by [facility], awaiting Bed availability. - Lab Interpretations Lab Results: Total Bilirubin 0.3 mg/dL (0.2-1.3) 09/20/18 19:40 AST 75 U/L (17-59) H D 09/20/18 19:40 ALT 43 U/L (7-56) 09/20/18 19:40 Alkaline Phosphatase 143 U/L (38-126) H 09/20/18 19:40 Total Protein 8.0 g/dL (5.8-8.3) 09/20/18 19:40 Albumin 4.3 g/dL (3.0-4.8) 09/20/18 19:40 Globulin 3.7 gm/dL 09/20/18 19:40 Albumin/Globulin Ratio 1.2 (1.1-1.8) 09/20/18 19:40 Urine Color Yellow (YELLOW) 09/20/18 23:23 Urine Appearance Clear (CLEAR) 09/20/18 23:23 Urine pH 6.0 (4.7-8.0) 09/20/18 23:23 Ur Specific [place] 1.010 (1.005-1.035) 09/20/18 23:23 Urine Protein Negative mg/dL (<30 mg/dL) 09/20/18 23:23 Urine Glucose (UA) Negative mg/dL (NEGATIVE) 09/20/18 23:23 Urine Ketones Negative mg/dL (NEGATIVE) 09/20/18 23:23 Urine Blood Small (NEGATIVE) H 09/20/18 23:23 Urine Nitrate Negative (NEGATIVE) 09/20/18 23:23 Urine Bilirubin Negative (NEGATIVE) 09/20/18 23:23 Urine Urobilinogen 0.2 E.U./dL (<1 E.U./dL) 09/20/18 23:23 Ur Leukocyte Esterase Negative Liv/uL (NEGATIVE) 09/20/18 23:23 Urine RBC 0 - 2 /hpf (0-2) 09/20/18 23:23 Urine WBC 0 - 2 /hpf (0-6) 09/20/18 23:23 Ur Epithelial Cells 0 - 2 /hpf (0-5) 09/20/18 23:23 Urine Bacteria None /hpf (NONE) 09/20/18 23:23 Hyaline Casts 0 - 2 /hpf (NONE) 09/20/18 23:23 Fine Granular Casts 0 - 2 /hpf (NONE) 09/20/18 23:23 Urine Other Mucus /hpf 09/20/18 23:23 - RAD Interpretation Radiology Orders: 09/20/18 18:53 CHEST PORTABLE [RAD] Stat - Medication Orders Current Medication Orders: Discontinued Medications Diphenhydramine HCl (Benadryl) 50 mg IM STAT STA Stop: 09/20/18 19:06 Last Admin: 09/20/18 19:16 Dose: 50 mg IM Administration Charges Document 09/20/18 19:16 [email or web address] (Rec: 09/20/18 19:16 [email or web address] [id number]) Injection Site MAR Injection Site Left Deltoid Charges for Administration # of IM Administrations 1 Haloperidol Lactate (Haldol) 5 mg IM STAT STA; Protocol Stop: 09/20/18 18:53 Last Admin: 09/20/18 18:50 Dose: 5 mg IM Administration Charges Document 09/20/18 18:50 [email or web address] (Rec: 09/20/18 19:15 [email or web address] [id number]) Injection Site MAR Injection Site Left Deltoid Charges for Administration # of IM Administrations 1 Lorazepam (Ativan) 2 mg IM ONCE ONE; Protocol Stop: 09/20/18 18:53 Last Admin: 09/20/18 18:50 Dose: 2 mg IM Administration Charges Document 09/20/18 18:50 [email or web address] (Rec: 09/20/18 19:15 [email or web address] [id number]) Injection Site MAR Injection Site Right Deltoid Charges for Administration # of IM Administrations 1 Lorazepam (Ativan) 2 mg IM ONCE ONE; Protocol Stop: 09/21/18 03:31 Last Admin: 09/21/18 03:37 Dose: 2 mg IM Administration Charges Document 09/21/18 03:37 EB (Rec: 09/21/18 03:37 EB [id number]) Injection Site MAR Injection Site Left Vastus Lateralis Charges for Administration # of IM Administrations 1 Ziprasidone (Geodon Inj) 10 mg IM STAT STA; Protocol Stop: 09/20/18 21:27 Last Admin: 09/20/18 21:28 Dose: 10 mg IM Administration Charges Document 09/20/18 21:28 CNR (Rec: 09/20/18 21:29 CNR [id number]) Injection Site MAR Injection Site Left Deltoid Charges for Administration # of IM Administrations 1 - Scribe Statement The provider has reviewed the documentation as recorded by the Scribe Edgard Cardenas All medical record entries made by the Scribe were at my direction and personally dictated by me. I have reviewed the chart and agree that the record accurately reflects my personal performance of the history, physical exam, medical decision making, and the department course for this patient. I have also personally directed, reviewed, and agree with the discharge instructions and disposition. Disposition/Present on Arrival - Present on Arrival Any Indicators Present on Arrival: No History of DVT/PE: No History of Uncontrolled Diabetes: No Urinary Catheter: No History of Decub. Ulcer: No History Surgical Site Infection Following: None - Disposition Have Diagnosis and Disposition been Completed?: Yes Diagnosis: Suicidal behavior Disposition: Transfer [facility] [place] Disposition Time: 08:07 Patient Plan: Transfer To Condition: FAIR Forms: [employer] (Urdu)
--- NOTE | 2018-09-21 09:53 | CARD ---
APPROVED REPORT Date of service: 09/20/2018 EKG Measurement Heart [id number] <Conclusion> Sinus tachycardia Left bundle branch block Abnormal ECG
--- NOTE | 2018-09-21 10:40 | RAD ---
Date of service: 09/20/2018 HISTORY: psych COMPARISON: 09/08/2018 TECHNIQUE: 1 view obtained. FINDINGS: LUNGS: No active pulmonary disease. PLEURA: No significant pleural effusion identified, no pneumothorax apparent. CARDIOVASCULAR: No aortic atherosclerotic calcification present. Normal cardiac size. No pulmonary vascular congestion. OSSEOUS STRUCTURES: Thoraco lumbar spondylosis-similar. Bilateral shoulder arthrosis mild-similar Bilateral 1st coaster cartilaginous junctional osseous and calcific hypertrophic [id number] VISUALIZED UPPER ABDOMEN: Normal. OTHER FINDINGS: None. IMPRESSION: No active disease. No interval pathology noted.
[2018-09-21 10:51] VITALS: BP 129/79; PULSE 89; RESP 18; O2SAT 93
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
== END 2018-09-21 12:34 | disposition short-term general hospital (02) ==
LOC: ED 18:32
DX: R45.851 Suicidal ideations (principal); F20.9 Schizophrenia, unspecified; I10 Essential (primary) hypertension; E11.9 Type 2 diabetes mellitus without complications; F17.210 Nicotine dependence, cigarettes, uncomplicated
CPT/HCPCS: 71045; 80053; 81001; 82948; 83735; 85025; 90791; 93005; 96372; 99285; G0480; J1200; J1630; J2060; J3486

== ENCOUNTER 2018-10-03 17:00 | Inpatient (IN) | payer MEDICARE, OTHER ==
[2018-10-03 18:02] VITALS: BMI 26.6
[2018-10-03] MEDS ORDERED: Multivitamin (MVI) 10 ML, Thiamine 100 MG, Folic Acid 1 MG in Sodium Chloride 0.9% 1,00... IV ONE (18:03)
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
--- NOTE | 2018-10-03 18:28 | RAD ---
Date of service: 10/03/2018 HISTORY: [place] COMPARISON: 09/20/2018. FINDINGS: LUNGS: The lungs are well inflated and clear. PLEURA: No pleural effusions or pneumothorax. CARDIOVASCULAR: The heart is normal in size. No aortic atherosclerotic calcifications present. OSSEOUS STRUCTURES: Within normal limits for the patient's age. VISUALIZED UPPER ABDOMEN: Normal. OTHER FINDINGS: None. IMPRESSION: No acute findings.
[2018-10-03 19:09] LABS: ACETAMINOPHEN < 10.0 ug/ml (10.0-20.0); SALICYLATE < 1 mg/dL (2.0-20.0)
[2018-10-03 19:10] LABS: BASO # 0.05 K/mm3 (0.0-2.0); BASO % 0.6 % (0.0-3.0); EOS % 0.1 % (1.5-5.0); HEMOGLOBIN 13.9 g/dL (14.0-18.0); LYMPH # 0.7 (1.2-3.4); LYMPH % 9.3 % (22.0-35.0); MEAN CELL VOLUME 87.9 fl (80.0-105.0); MEAN CORPUSCULAR HEMOGLOBIN 29.1 pg (25.0-35.0); MEAN CORPUSCULAR HGB CONC 33.1 g/dl (31.0-37.0); MEAN PLATELET VOLUME 9.4 fl (7.0-11.0); MONO # 0.4 (0.1-0.6); MONO % 5.6 % (1.0-6.0); RBC 4.78 10^6/uL (3.5-6.1); RED CELL DISTRIBUTION WIDTH 12.9 % (11.5-14.5); WHITE BLOOD COUNT 7.8 10^3/uL (4.5-11.0)
[2018-10-03 19:17] LABS: ALB/GLOB RATIO 1.3 (1.1-1.8); ALBUMIN 4.2 g/dL (3.0-4.8); BLOOD UREA NITROGEN 10 mg/dL (7-21); CALCIUM 8.5 mg/dL (8.4-10.5); GFR NON-AFRICAN AMERICAN > 60
[2018-10-03 19:33] LABS: ALT/SGPT 1795 U/L (7-56); AST/SGOT 2344 U/L (17-59)
[2018-10-03] MEDS ORDERED: Sodium Chloride 0.9% 1,000 ML IV SCH (23:15)
[2018-10-04 04:21] VITALS: RESP 20
[2018-10-04 05:20] VITALS: O2SAT 97
[2018-10-04 07:54] VITALS: BP 132/81; PULSE 75; TEMP 97.6
--- NOTE | 2018-10-04 10:55 | CARD ---
APPROVED REPORT Date of service: 10/03/2018 EKG Measurement Heart [id number] <Conclusion> Normal sinus rhythm Left bundle branch block Abnormal ECG
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
--- NOTE | 2018-10-05 02:21 | DS ---
HISTORY OF PRESENT ILLNESS: I saw him in this morning. He is up in his room, walking around, he pulled up the IV, he tells he is going AMA and I told him, I want to get GI into see him. His liver enzymes are elevated stop drinking and medications we are going to put him on and he does not want to hear it and he wants to sign out, he went to the nurse to sign out AMA. He is here for alcohol abuse, alcohol withdrawal, nausea, vomiting, elevated liver enzymes. PHYSICAL EXAMINATION: VITAL SIGNS: He has a 97.6 temp, 75 pulse, 132/81 blood pressure, 20 respiratory rate and 97% O2 sat on room air. HEENT: Head is atraumatic and normocephalic. HEART: Regular rate. LUNGS: Decreased breath sounds. ABDOMEN: Soft. EXTREMITIES: No edema. LABORATORY DATA: He did not have labs this morning. He refused them. He said he has medications at home. Hopefully, he will followup in the office. Hopefully he will stop drinking. Chest x-ray was okay. He went AMA this morning for alcohol abuse, elevated liver enzymes and tachycardia. Jose Johnson DO MTDD
== END 2018-10-04 09:01 | disposition left against medical advice (07) | DRG 894 ==
LOC: ED 17:00 → ERH 20:03 → 2RSO 23:40
PROVIDERS: ADMIT Family Medicine; ATTEND Family Medicine
DX: F10.239 Alcohol dependence with withdrawal, unspecified (principal); F20.0 Paranoid schizophrenia; Y90.1 Blood alcohol level of 20-39 mg/100 ml; E11.9 Type 2 diabetes mellitus without complications; K21.9 Gastro-esophageal reflux disease without esophagitis; F42.9 Obsessive-compulsive disorder, unspecified; F17.210 Nicotine dependence, cigarettes, uncomplicated; R74.8 Abnormal levels of other serum enzymes; Z62.810 Personal history of physical and sexual abuse in childhood